=== PATIENT | male | born 1980 | race Hispanic/Latino ===

== ENCOUNTER 2017-07-08 16:41 | Emergency (ER) | payer BC ==
[2017-07-08 16:42] VITALS: BMI 30.8
[2017-07-08 16:52] VITALS: TEMP 98.8
--- NOTE | 2017-07-08 17:47 | ED PDOC ---
Arrival/HPI - General Chief Complaint: Alcohol Ingestion Time Seen by Provider: 07/08/17 17:30 Historian: Patient - History of Present Illness Narrative History of Present Illness (Text): you were treated in the ED today for hx of anxiety, and was drinking alcohol about 4-5 days ago and stopped and states doesn't drink daily, and now feels off , dizziness/lightheaded but otherwise without any nausea/vomiting/headache/ difficulty breathing/chest pain/abdomen pain/numbness/tingling/loss of limb function/pain with urination/thoughts to harm himself or others or hallucinations. 07/08/17 17:43 Time/Duration: Other (4 days ago) Symptom Onset: Gradual Symptom Course: Unchanged Quality: Other (no pain) Activities at Onset: Rest Context: Sitting Past Medical History - Provider Review Nursing Documentation Reviewed: Yes - Travel History Have you recently traveled outside [place] w/in the past 3 mons?: No - Infectious Disease Hx of Infectious Diseases: None - Tetanus Immunization Tetanus Immunization: Unknown - Past Medical History Past Medical History: No Previous - Cardiac Hx Cardiac Disorders: No - Pulmonary Hx Respiratory Disorders: No - Neurological Hx Neurological Disorder: No - HEENT Hx HEENT Disorder: No - Renal Hx Renal Disorder: No - Endocrine/Metabolic Hx Endocrine Disorders: No - Hematological/Oncological Hx Blood Disorders: No - Integumentary Hx Dermatological Disorder: No Other/Comment: cyst removed on back, pt has scab on back 1cm x 1cm - Musculoskeletal/Rheumatological Hx Musculoskeletal Disorders: Yes Hx Falls: Yes - Gastrointestinal Hx Gastrointestinal Disorders: No - Genitourinary/Gynecological Hx Genitourinary Disorders: No - Psychiatric Hx Psychophysiologic Disorder: Yes Hx Anxiety: Yes Hx Bipolar Disorder: No Hx Depression: Yes Hx Emotional Abuse: No Hx Hallucinations: No Hx Panic Disorder: No Hx Post Traumatic Stress Disorder: No Hx Physical Abuse: No Hx Schizophrenia: No Hx Sexual Abuse: No Hx Substance Use: No - Past Surgical History Past Surgical History: No Previous - Anesthesia Hx Anesthesia: No Hx Anesthesia Reactions: No Hx Malignant Hyperthermia: No - Suicidal Assessment Feels Threatened In Home Enviroment: No Family/Social History - Physician Review Nursing Documentation Reviewed: Yes Family/Social History: No Known Family HX Smoking Status: Current Some Days Smoker Hx Alcohol Use: Yes Frequency of alcohol use: Daily Hx Substance Use: No Hx Substance Use Treatment: No Allergies/Home Meds Allergies/Adverse Reactions: Allergies No Known Allergies Allergy (Verified 07/08/17 16:46) Home Medications: Home Meds Medication Instructions Recorded Confirmed QUEtiapine [Seroquel XR] 150 mg PO HS 07/08/17 07/08/17 Review of Systems - Review of Systems Constitutional: Normal Eyes: Normal ENT: Normal Respiratory: Normal Cardiovascular: Normal Gastrointestinal: Normal Genitourinary Male: Normal Musculoskeletal: Normal Skin: Normal Neurological: Normal Endocrine: Normal Hemo/Lymphatic: Normal Psychiatric: Anxiety Physical Exam Vital Signs Reviewed: Yes Vital Signs Temp Pulse Resp BP Pulse Ox 07/08/17 23:01 95 H 18 135/82 96 07/08/17 22:47 98.8 F 214 H 22 110/73 97 07/08/17 16:51 98.8 F 120 H 18 121/76 96 Temperature: Afebrile Blood Pressure: Hypertensive Pulse: Tachycardic Respiratory Rate: Normal Appearance: Positive for: Well-Appearing, Non-Toxic, Comfortable Pain Distress: None Mental Status: Positive for: Alert and Oriented X 3 - Systems Exam Head: Present: Atraumatic, Normocephalic Pupils: Present: PERRL Extroacular Muscles: Present: EOMI Conjunctiva: Present: Normal Ears: Present: Normal Mouth: Present: Moist Mucous Membranes Pharnyx: Present: Normal Nose (External): Present: Atraumatic Nose (Internal): Present: Normal Inspection Neck: Present: Normal Range of Motion Respiratory/Chest: Present: Clear to Auscultation, Good Air Exchange Cardiovascular: Present: Regular Rate and Rhythm Abdomen: No: Tenderness, Distention, Normal Bowel Sounds, Peritoneal Signs, Rebound, Guarding, McBurney's Point Tender, Rovsing's Sign Present, Hernias, Feeding Tubes, Ostomy Tubes, Mass/Organomegaly, Scars, Other Back: Present: Normal Inspection Upper Extremity: Present: Normal Inspection Lower Extremity: Present: Normal Inspection Neurological: Present: GCS=15, CN II-XII Intact, Speech Normal, Motor Func Grossly Intact Skin: Present: Warm, Normal Color Psychiatric: Present: Alert, Oriented x 3, Normal Insight, Normal Concentration , Anxious. No: Normal Affect, Normal Mood, Agitated, Depressed Mood, Suicidal Ideation, Homicidal Ideation, Delusional, Hallucinations, Intoxicated, Lethargic , Other Medical Decision Making ED Course and Treatment: 07/08/17 17:47 you were treated in the ED today for hx of anxiety, and was drinking alcohol about 4-5 days ago and stopped and states doesn't drink daily, and now feels off , dizziness/lightheaded but otherwise without any nausea/vomiting/headache/ difficulty breathing/chest pain/abdomen pain/numbness/tingling/loss of limb function/pain with urination/thoughts to harm himself or others or hallucinations. You were otherwise breathing easily, pink moist lips, talking easily, good strength/sensation, alert/oriented, walking easily, clear lungs, no abdomen tenderness, no fever temp 98.8, fast heart rate 120 and repeat_95, stable breathing rate 18, excellent oxygen level 96% room air, elevated blood pressure 121/76 and repeat 135/82 which we recommend repeat in 2-3 days primary care office to determine further treatment, you have blood tests no infection count 8.6, stable blood level hemoglobin 15/platelets 206, stable chemistry, potassium 3.5 mildly low, bicarbonate mildly low 19, liver AST/ALT elevated 87/ 153, heart blood test negative, alcohol elevated 272, tylenol level negative, aspirin negative, mildly elevated anion gap 23, urine test/urine drug test and repeat chemistry tests refused and cautioned for complications/, radiology chest xray no acute and ct head showed paranasal disease, no acute abnormalities , ECG normal sinus rhythm, intravenous hydration done in the ED, observation done in the ED with improvement/sober status/alert/oriented/walking easily, mental health evaluation who stated you are cleared, can go to rehab/ detoxification center and information provided, you didn't want to repeat your lab tests and cautioned for complications/ but you stated you wanted to go home, counselled to stop drinking alcohol and thus discharged home and you stated you were going to take an Uber safe ride. 1. Recommend follow-up primary care 1-2 days to review symptoms, referral to gastroenterology clinic for mildly elevated liver tests without yellowing to ensure no complications, referral to detoxification clinic to stop drinking alcohol. 4. If any worsening pain, fever, chills, nausea, vomiting, difficulty breathing, numbness, loss of limb function, pain with urination or any medical condition then return to the ED. Report Date: 07/08/17 20:04 EXAM: CT Head Without Intravenous Contrast Dictated and Authenticated by: Yan Sanchez MD IMPRESSION: 1. No definitive acute intracranial abnormality. 2. Paranasal sinus disease is noted above. - Lab Interpretations Lab Results: 07/08/17 17:50 07/08/17 17:50 Lab Results 07/08/17 18:56: Urine Opiates Screen Negative, Urine Methadone Screen Negative, Ur Barbiturates Screen Negative, Ur Phencyclidine Scrn Negative, Ur Amphetamines Screen Negative, U Benzodiazepines Scrn Negative, U Oth Cocaine Metabols Negative, U Cannabinoids Screen Negative 07/08/17 18:56: Urine Color Light yellow, Urine Appearance Clear, Urine pH 6.5, Ur Specific [place] <= 1.005, Urine Protein Negative, Urine Glucose (UA) Negative, Urine Ketones Negative, Urine Blood Negative, Urine Nitrate Negative, Urine Bilirubin Negative, Urine Urobilinogen 0.2, Ur Leukocyte Esterase Negative 07/08/17 17:50: Alcohol, Quantitative 272 H 07/08/17 17:50: Salicylates < 1 L, Acetaminophen < 10.0 L 07/08/17 17:50: Sodium 143, Potassium 3.5 L, Chloride 104, Carbon Dioxide 19 L, Anion Gap 23 H, BUN 5 L, Creatinine 0.8, Est GFR ( Amer) > 60, Est GFR ( Non-Af Amer) > 60, Random Glucose 187 H, Calcium 9.7, Total Bilirubin 0.3, AST 98 H, ALT 153 H, Alkaline Phosphatase 50, Troponin I < 0.01, Total Protein 7.3, Albumin 4.5, Globulin 2.8, Albumin/Globulin Ratio 1.6 07/08/17 17:50: WBC 8.6, RBC 4.75, Hgb 15.5, Hct 43.0, MCV 90.5, MCH 32.6, MCHC 36.0, RDW 13.6, Plt Count 206, MPV 10.9, Gran % 65.4, Lymph % (Auto) 26.0, [place] % (Auto) 7.6 H, Eos % (Auto) 0.8 L, Baso % (Auto) 0.2, Gran # 5.62, Lymph # ( Auto) 2.2, [place] # (Auto) 0.7 H, Eos # (Auto) 0.1, Baso # (Auto) 0.02 I have reviewed the lab results: Yes - RAD Interpretation Radiology Orders: 07/08/17 17:41 CHEST PORTABLE [RAD] Stat 07/08/17 17:42 HEAD W/O CONTRAST [CT] Stat Astronomy Department Chair: Radiologist - EKG Interpretation Interpreted by ED Physician: Yes (NSR) Type: 12 lead EKG Comparison: Similar to previous EKG (08/28/15) - Medication Orders Current Medication Orders: Discontinued Medications Sodium Chloride (Sodium Chloride 0.9%) 1,000 mls @ 999 mls/hr IV .Q1H1M STA Stop: 07/08/17 19:29 Last Admin: 07/08/17 19:24 Dose: 999 mls/hr eMAR Start Stop Document 07/08/17 19:24 CNR (Rec: 07/08/17 19:26 CNR [id number]) Intravenous Solution Start Date 07/08/17 Start Time 19:26 Sodium Chloride (Sodium Chloride 0.9%) 1,000 mls @ 999 mls/hr IV .Q1H1M STA Stop: 07/08/17 21:40 Last Admin: 07/08/17 20:51 Dose: 999 mls/hr eMAR Start Stop Document 07/08/17 20:51 CNR (Rec: 07/08/17 20:51 CNR [id number]) Intravenous Solution Start Date 07/08/17 Start Time 20:51 Disposition/Present on Arrival - Present on Arrival Any Indicators Present on Arrival: No History of DVT/PE: No History of Uncontrolled Diabetes: No Urinary Catheter: No History of Decub. Ulcer: No History Surgical Site Infection Following: None - Disposition Have Diagnosis and Disposition been Completed?: Yes Diagnosis: Alcohol abuse Disposition: HOME/ ROUTINE Disposition Time: 23:10 Patient Plan: Discharge Patient Problems: Current Active Problems Problem Status Onset Alcohol abuse Acute Condition: IMPROVED Discharge Instructions (ExitCare): Alcohol Abuse and Alcoholism (DC), Effects of Alcohol on Your Health Additional Instructions: you were treated in the ED today for hx of anxiety, and was drinking alcohol about 4-5 days ago and stopped and states doesn't drink daily, and now feels off , dizziness/lightheaded but otherwise without any nausea/vomiting/headache/ difficulty breathing/chest pain/abdomen pain/numbness/tingling/loss of limb function/pain with urination/thoughts to harm himself or others or hallucinations. You were otherwise breathing easily, pink moist lips, talking easily, good strength/sensation, alert/oriented, walking easily, clear lungs, no abdomen tenderness, no tremors, no fever temp 98.8, fast heart rate 120 and repeat_95, stable breathing rate 18, excellent oxygen level 96% room air, elevated blood pressure 121/76 and repeat 135/82 which we recommend repeat in 2- 3 days primary care office to determine further treatment, you have blood tests no infection count 8.6, stable blood level hemoglobin 15/platelets 206, stable chemistry, potassium 3.5 mildly low, bicarbonate mildly low 19, liver AST/ALT elevated 87/153, heart blood test negative, alcohol elevated 272, tylenol level negative, aspirin negative, mildly elevated anion gap 23, urine test/urine drug test and repeat chemistry tests refused and cautioned for complications/, radiology chest xray no acute and ct head showed paranasal disease, no acute abnormalities, ECG normal sinus rhythm, intravenous hydration done in the ED, observation done in the ED with improvement/sober status/alert/oriented/walking easily, mental health evaluation who stated you are cleared, can go to rehab/ detoxification center and information provided, you didn't want to repeat your lab tests and cautioned for complications/ but you stated you wanted to go home, you had no tremors, counselled to stop drinking alcohol and thus discharged home and you stated you were going to take an Uber safe ride. 1. Recommend follow-up primary care 1-2 days to review symptoms, referral to gastroenterology clinic for mildly elevated liver tests without yellowing to ensure no complications, referral to detoxification clinic to stop drinking alcohol. 4. If any worsening pain, fever, chills, nausea, vomiting, difficulty breathing, numbness, loss of limb function, pain with urination or any medical condition then return to the ED. no sign of acute withdrawal Forms: [employer] (Khmer)
[2017-07-08 18:07] LABS: BASO # 0.02 K/mm3 (0.0-2.0); BASO % 0.2 % (0.0-3.0); EOS # 0.1 (0.0-0.7); EOS % 0.8 % (1.5-5.0); GRAN # 5.62 (1.4-6.5); GRAN % 65.4 % (50.0-68.0); HEMOGLOBIN 15.5 g/dL (14.0-18.0); LYMPH # 2.2 (1.2-3.4); MEAN CELL VOLUME 90.5 fl (80.0-105.0); MEAN CORPUSCULAR HEMOGLOBIN 32.6 pg (25.0-35.0); MEAN PLATELET VOLUME 10.9 fl (7.0-11.0); MONO # 0.7 (0.1-0.6); MONO % 7.6 % (1.0-6.0); RBC 4.75 10^6/uL (3.5-6.1); RED CELL DISTRIBUTION WIDTH 13.6 % (11.5-14.5); WHITE BLOOD COUNT 8.6 10^3/ul (4.5-11.0)
[2017-07-08 18:12] LABS: ACETAMINOPHEN < 10.0 ug/ml (10.0-20.0); SALICYLATE < 1 mg/dL (2.0-20.0)
[2017-07-08 18:14] LABS: ALB/GLOB RATIO 1.6 (1.1-1.8); ALBUMIN 4.5 g/dL (3.0-4.8); ALT/SGPT 153 U/L (7-56); AST/SGOT 98 U/L (17-59); BLOOD UREA NITROGEN 5 mg/dL (7-21); CALCIUM 9.7 mg/dL (8.4-10.5); GFR AFRICAN-AMERICAN > 60; GFR NON-AFRICAN AMERICAN > 60
[2017-07-08] MEDS ORDERED: Sodium Chloride 0.9% 1,000 ML IV STA ×2 (18:29→20:40)
[2017-07-08 18:31] LABS: TROPONIN I < 0.01 ng/mL
[2017-07-08 19:11] LABS: PH,URINE 6.5 (4.7-8.0); URINE BILIRUBIN NEGATIVE (NEGATIVE); URINE BLOOD NEGATIVE (NEGATIVE); URINE GLUCOSE (UA) NEGATIVE (NEGATIVE); URINE LEUKOCYTE ESTERASE NEGATIVE Leu/uL (NEGATIVE); URINE NITRATE NEGATIVE (NEGATIVE); URINE PROTEIN NEGATIVE mg/dL (<30 mg/dL); URINE UROBILINOGEN 0.2 E.U./dL (<1 E.U./dL)
[2017-07-08 19:13] LABS: URINE APPEARANCE CLEAR (CLEAR); URINE COLOR LIGHT YELLOW (YELLOW)
[2017-07-08 19:47] LABS: BARBITURATES, UR NEGATIVE (NEGATIVE); BENZODIAZEPINES, UR NEGATIVE (NEGATIVE); OPIATES, UR NEGATIVE (NEGATIVE); PHENCYCLIDINE, UR NEGATIVE (NEGATIVE)
--- NOTE | 2017-07-08 20:05 | CT ---
EXAM: CT Head Without Intravenous Contrast EXAM DATE/TIME: 07/08/2017 5:42 PM CLINICAL HISTORY: The patient age is 36 years old and is male; Signs and symptoms; Dizziness; Additional info: 36yom, dizziness/lightheaded Facility exam id and description: Ct heads head w/o contrast TECHNIQUE: Axial computed tomography images of the head/brain without intravenous contrast. All CT scans at this facility use one or more dose reduction techniques, viz.: automated exposure control; ma/kV adjustment per patient size (including targeted exams where dose is matched to indication; i.e. head); or iterative reconstruction technique. Coronal and sagittal reformatted images were created and reviewed. COMPARISON: CT - HEAD W/O CONTRAST 2016-03-30 11:05 FINDINGS: Brain: The white-das differentiation is preserved demonstrating no acute territorial type infarct. No definitive acute intracranial hemorrhage is seen. Midline shift: There is no midline shift. Ventricles: No ventriculomegaly. Bones/joints: The calvarium demonstrates no evidence for a depressed fracture. Soft tissues: No acute abnormality. Sinuses: There is opacification of a right posterior ethmoid air cell. Mastoid air cells: No mastoid effusion. IMPRESSION: 1. No definitive acute intracranial abnormality. 2. Paranasal sinus disease is noted above.
[2017-07-08 23:02] VITALS: BP 135/82; PULSE 95; RESP 18; O2SAT 96
--- NOTE | 2017-07-09 09:37 | RAD ---
HISTORY: 36yoM, alcohol use COMPARISON: 08/28/2015 FINDINGS: LUNGS: The lungs are well inflated and clear. PLEURA: No significant pleural effusion identified, no pneumothorax apparent. CARDIOVASCULAR: Normal. OSSEOUS STRUCTURES: No significant abnormalities. VISUALIZED UPPER ABDOMEN: Normal. OTHER FINDINGS: None. IMPRESSION: No active pulmonary disease.
--- NOTE | 2017-07-09 11:00 | CARD ---
APPROVED REPORT EKG Measurement Heart [id number] <Conclusion> Sinus tachycardia Otherwise normal ECG
== END 2017-07-08 23:19 | disposition home or self-care (01) ==
LOC: ED 16:41
DX: F10.10 Alcohol abuse, uncomplicated (principal); Y90.8 Blood alcohol level of 240 mg/100 ml or more; F41.9 Anxiety disorder, unspecified
CPT/HCPCS: 70450; 71045; 80053; 81003; 84484; 85025; 90791; 93005; 99285; G0480; J7040

== ENCOUNTER 2017-08-25 16:57 | Emergency (ER) | payer BC ==
[2017-08-25 17:27] VITALS: TEMP 98.2; O2SAT 98; BMI 32.5
[2017-08-25] MEDS ORDERED: Multivitamin (MVI) 10 ML, Thiamine 100 MG, Folic Acid 1 MG in Sodium Chloride 0.9% 1,00... IV ONE (17:35)
[2017-08-25 18:05] LABS: BASO # 0.01 K/mm3 (0.0-2.0); BASO % 0.1 % (0.0-3.0); EOS # 0.1 (0.0-0.7); EOS % 0.7 % (1.5-5.0); GRAN # 5.01 (1.4-6.5); GRAN % 66.1 % (50.0-68.0); HEMOGLOBIN 15.2 g/dL (14.0-18.0); LYMPH % 26.9 % (22.0-35.0); MEAN CELL VOLUME 88.8 fl (80.0-105.0); MEAN CORPUSCULAR HEMOGLOBIN 31.6 pg (25.0-35.0); MEAN CORPUSCULAR HGB CONC 35.6 g/dl (31.0-37.0); MEAN PLATELET VOLUME 10.3 fl (7.0-11.0); MONO # 0.5 (0.1-0.6); MONO % 6.2 % (1.0-6.0); RBC 4.81 10^6/uL (3.5-6.1); RED CELL DISTRIBUTION WIDTH 13.8 % (11.5-14.5); WHITE BLOOD COUNT 7.6 10^3/ul (4.5-11.0)
[2017-08-25 18:23] LABS: ALB/GLOB RATIO 1.5 (1.1-1.8); ALBUMIN 4.3 g/dL (3.0-4.8); ALT/SGPT 101 U/L (7-56); AST/SGOT 82 U/L (17-59); BLOOD UREA NITROGEN 12 mg/dL (7-21); CALCIUM 9.6 mg/dL (8.4-10.5); GFR AFRICAN-AMERICAN > 60; GFR NON-AFRICAN AMERICAN > 60; LIPASE 101 U/L (23-300)
[2017-08-25 18:33] LABS: TROPONIN I < 0.01 ng/mL
[2017-08-25 18:57] LABS: URINE BILIRUBIN NEGATIVE (NEGATIVE); URINE BLOOD NEGATIVE (NEGATIVE); URINE GLUCOSE (UA) NEGATIVE (NEGATIVE); URINE LEUKOCYTE ESTERASE NEGATIVE Leu/uL (NEGATIVE); URINE PROTEIN NEGATIVE mg/dL (<30 mg/dL); URINE UROBILINOGEN 0.2 E.U./dL (<1 E.U./dL)
[2017-08-25 19:01] VITALS: BP 151/96; PULSE 105; RESP 18
[2017-08-25 19:06] LABS: URINE APPEARANCE CLEAR (CLEAR); URINE COLOR YELLOW (YELLOW)
[2017-08-25 19:21] LABS: BARBITURATES, UR NEGATIVE (NEGATIVE); BENZODIAZEPINES, UR NEGATIVE (NEGATIVE); OPIATES, UR NEGATIVE (NEGATIVE); PHENCYCLIDINE, UR NEGATIVE (NEGATIVE)
--- NOTE | 2017-08-25 19:51 | ED PDOC ---
Arrival/HPI - General Chief Complaint: Chest Pain Time Seen by Provider: 08/25/17 17:24 Historian: Patient - History of Present Illness Narrative History of Present Illness (Text): 08/25/17 19:52 36-year-old male with a history of alcohol abuse presents today with a two-week history of intermittent chest pain and shortness of breath. Patient states over the past few days chest pain and shortness of breath has worsened. Patient states today he felt as if an elephant was sitting on top of the chest. Patient complaining of pain with deep inspiration. Patient denies any trauma or injury. Patient states he recently finished a 3 day binge of drinking after 2 months of sobriety. Patient denies abdominal pain. Patient complaining of nausea no vomiting. Patient denies radiation of pain to the back. Patient denies drug use. Patient denies dizziness or weakness. No other complaints Symptom Onset: Gradual Symptom Course: Worsening Quality: Pressure, Stabbing Severity Level: 5, 8 Past Medical History - Provider Review Nursing Documentation Reviewed: Yes - Travel History Have you recently traveled outside [place] w/in the past 3 mons?: No - Infectious Disease Hx of Infectious Diseases: None - Tetanus Immunization Tetanus Immunization: Unknown - Past Medical History Past Medical History: No Previous - Cardiac Hx Cardiac Disorders: No - Pulmonary Hx Respiratory Disorders: Yes Hx Sleep Apnea: Yes - Neurological Hx Neurological Disorder: No - HEENT Hx HEENT Disorder: No - Renal Hx Renal Disorder: No - Endocrine/Metabolic Hx Endocrine Disorders: No - Hematological/Oncological Hx Blood Disorders: No - Integumentary Hx Dermatological Disorder: No Other/Comment: cyst removed on back, pt has scab on back 1cm x 1cm - Musculoskeletal/Rheumatological Hx Musculoskeletal Disorders: Yes Hx Falls: Yes - Gastrointestinal Hx Gastrointestinal Disorders: No - Genitourinary/Gynecological Hx Genitourinary Disorders: No - Psychiatric Hx Psychophysiologic Disorder: Yes Hx Anxiety: Yes Hx Bipolar Disorder: No Hx Depression: Yes Hx Emotional Abuse: No Hx Hallucinations: No Hx Panic Disorder: No Hx Post Traumatic Stress Disorder: No Hx Physical Abuse: No Hx Schizophrenia: No Hx Sexual Abuse: No Hx Substance Use: No - Past Surgical History Past Surgical History: No Previous - Anesthesia Hx Anesthesia: No Hx Anesthesia Reactions: No Hx Malignant Hyperthermia: No - Suicidal Assessment Feels Threatened In Home Enviroment: No Family/Social History - Physician Review Nursing Documentation Reviewed: Yes Family/Social History: Unknown Family HX Smoking Status: Heavy Smoker > 10 Cigarettes Daily Hx Alcohol Use: Yes Hx Substance Use: No Hx Substance Use Treatment: No Allergies/Home Meds Allergies/Adverse Reactions: Allergies No Known Allergies Allergy (Verified 08/25/17 17:13) Home Medications: Home Meds Medication Instructions Recorded Confirmed QUEtiapine [Seroquel XR] 150 mg PO HS 07/08/17 07/08/17 Review of Systems - Review of Systems Constitutional: absent: Fatigue, Fevers ENT: absent: Sore Throat, Sinus Congestion Respiratory: SOB. absent: Cough Cardiovascular: Chest Pain, Palpitations Gastrointestinal: Nausea. absent: Abdominal Pain, Vomiting Genitourinary Male: absent: Dysuria Musculoskeletal: absent: Arthralgias, Back Pain, Neck Pain Skin: absent: Rash, Pruritis Neurological: absent: Headache, Dizziness Psychiatric: Anxiety. absent: Depression, Suicidal Ideation Physical Exam Vital Signs Reviewed: Yes Vital Signs Temp Pulse Resp BP Pulse Ox 08/25/17 19:00 105 H 18 151/96 H 98 08/25/17 17:14 98.2 F 116 H 19 144/101 H 98 Temperature: Afebrile Blood Pressure: Hypertensive Pulse: Tachycardic Respiratory Rate: Normal Appearance: Positive for: Well-Appearing, Non-Toxic, Comfortable Pain Distress: None Mental Status: Positive for: Alert and Oriented X 3 - Systems Exam Head: Present: Atraumatic Mouth: Present: Moist Mucous Membranes Neck: Present: Normal Range of Motion Respiratory/Chest: Present: Clear to Auscultation, Good Air Exchange. No: Respiratory Distress, Accessory Muscle Use Cardiovascular: Present: Tachycardic. No: Murmurs Abdomen: No: Tenderness, Distention, Peritoneal Signs, Rebound, Guarding Back: Present: Normal Inspection. No: CVA Tenderness, Midline Tenderness, Paraspinal Tenderness Upper Extremity: Present: Normal ROM Lower Extremity: Present: Normal ROM. No: CALF TENDERNESS Neurological: Present: GCS=15, Speech Normal Skin: Present: Warm, Dry, Normal Color. No: Rashes Psychiatric: Present: Alert, Oriented x 3 Medical Decision Making ED Course and Treatment: 08/25/17 19:54 pt with chest pain and SOB. pt tachycardic and hypertensive. cbc; wnl cmp; wnl trop: wnl d-dimer; wnl alcohol: <10 UDs; wnl ekg; sinus tachycardia at 106 bpm normal axis and QTC 441, no ST elevations cxr; no infiltrate, no effusion pt reassessment; pt feeling better; denies chest pain. asa given PO pt refused admission to the hospital for chest pain and alcohol withdrawal; pt refused additional lab testing. Patient has been advised to not leave the emergency room but has decided to go AGAINST MEDICAL ADVICE. The patient possesses capacity to make decisions and has voiced understanding to all my warnings of potential worsening of the condition for which medical care was sought. I have discussed all known and potential risks and consequences to the patient leaving AGAINST MEDICAL ADVICE. Patient is leaving against medical advise. AMA form signed. witness by NOA KO. pt with ciwa score of 2; will give librium in er and d/c home with rx for librium for 2 days. all aspects of this case were discussed the attending of record. impression; chest pain, alcohol withdrawal RETURN IF YOU WISH TO CONTINUE YOUR CARE Librium; take 1 tablet every 12 hours Follow up with the primary care physician tomorrow. follow up with the cafeteria monitor within the next 2 days. return immediately if symptoms worsen, persist or if new symptoms develop. - Lab Interpretations Lab Results: 08/25/17 17:45 08/25/17 17:45 Lab Results 08/25/17 18:50: Urine Opiates Screen Negative, Urine Methadone Screen Negative, Ur Barbiturates Screen Negative, Ur Phencyclidine Scrn Negative, Ur Amphetamines Screen Negative, U Benzodiazepines Scrn Negative, U Oth Cocaine Metabols Negative, U Cannabinoids Screen Negative 08/25/17 18:50: Urine Color Yellow, Urine Appearance Clear, Urine pH 6.0, Ur Specific [place] <= 1.005, Urine Protein Negative, Urine Glucose (UA) Negative, Urine Ketones Negative, Urine Blood Negative, Urine Nitrate Negative, Urine Bilirubin Negative, Urine Urobilinogen 0.2, Ur Leukocyte Esterase Negative 08/25/17 17:45: Alcohol, Quantitative < 10 08/25/17 17:45: WBC 7.6, RBC 4.81, Hgb 15.2, Hct 42.7, MCV 88.8, MCH 31.6, MCHC 35.6, RDW 13.8, Plt Count 170, MPV 10.3, Gran % 66.1, Lymph % (Auto) 26.9, [place] % (Auto) 6.2 H, Eos % (Auto) 0.7 L, Baso % (Auto) 0.1, Gran # 5.01, Lymph # ( Auto) 2.0, Major # (Auto) 0.5, Eos # (Auto) 0.1, Baso # (Auto) 0.01 08/25/17 17:45: Sodium 134, Potassium 3.8, Chloride 97 L, Carbon Dioxide 25, Anion Gap 15, BUN 12, Creatinine 0.7 L, Est GFR ( Amer) > 60, Est GFR ( Non-Af Amer) > 60, Random Glucose 90, Calcium 9.6, Total Bilirubin 0.5, AST 82 H , ALT 101 H, Alkaline Phosphatase 60, Lactate Dehydrogenase 499, Total Creatine Kinase 98, Troponin I < 0.01, Total Protein 7.3, Albumin 4.3, Globulin 3.0, Albumin/Globulin Ratio 1.5, Lipase 101 08/25/17 17:45: D-Dimer, Quantitative < 200 - RAD Interpretation Radiology Orders: 08/25/17 17:34 CHEST PORTABLE [RAD] Stat - Medication Orders Current Medication Orders: Discontinued Medications Aspirin (Aspirin) 325 mg PO STAT STA Stop: 08/25/17 20:43 Last Admin: 08/25/17 21:02 Dose: 325 mg Chlordiazepoxide (Librium) 25 mg PO STAT STA PRN Reason: Protocol Stop: 08/25/17 20:41 Last Admin: 08/25/17 21:02 Dose: 25 mg Multivitamins/Vitamin C 10 ml/Thiamine HCl 100 mg/ Folic Acid 1 mg/ Sodium Chloride 1,011.2 mls @ 100 mls/hr IV .Q10H7M ONE Stop: 08/26/17 03:41 Last Admin: 08/25/17 18:40 Dose: 100 mls/hr eMAR Start Stop Document 08/25/17 18:40 SRE (Rec: 08/25/17 18:41 SRE [id number]) Intravenous Solution Start Date 08/25/17 Start Time 18:41 Disposition/Present on Arrival - Present on Arrival Any Indicators Present on Arrival: No History of DVT/PE: No History of Uncontrolled Diabetes: No Urinary Catheter: No History of Decub. Ulcer: No History Surgical Site Infection Following: None - Disposition Have Diagnosis and Disposition been Completed?: Yes Diagnosis: Chest pain, Alcohol withdrawal Disposition: AGAINST MEDICAL ADVICE Disposition Time: 20:48 Patient Plan: Other (AMA) Condition: GUARDED Discharge Instructions (ExitCare): Chest Pain, Alcohol Withdrawal, Alcohol Abuse and Alcoholism (DC) Additional Instructions: RETURN IF YOU WISH TO CONTINUE YOUR CARE Librium; take 1 tablet every 12 hours Follow up with the primary care physician tomorrow. follow up with the cafeteria monitor within the next 2 days. return immediately if symptoms worsen, persist or if new symptoms develop. Prescriptions: chlordiazePOXIDE [Chlordiazepoxide HCl] 25 mg PO BID #4 cap Referrals: Gurwinder Abdalla MD [Staff Provider] - Follow up with primary [place] Sanchez MD [Staff Provider] - Follow up with primary Forms: [employer] (Somali), WORK NOTE
--- NOTE | 2017-08-26 09:13 | RAD ---
HISTORY: chest pain COMPARISON: Comparison made with prior chest radiograph dated 07/08/2017 FINDINGS: LUNGS: No active pulmonary disease. PLEURA: No significant pleural effusion identified, no pneumothorax apparent. CARDIOVASCULAR: Normal. OSSEOUS STRUCTURES: No significant abnormalities. VISUALIZED UPPER ABDOMEN: Normal. OTHER FINDINGS: None. IMPRESSION: No active disease.
--- NOTE | 2017-08-26 22:29 | CARD ---
APPROVED REPORT EKG Measurement Heart [id number] [place] 160P57 [id number] <Conclusion> Sinus tachycardia Otherwise normal ECG
== END 2017-08-25 21:10 | disposition left against medical advice (07) ==
LOC: ED 16:57
DX: F10.239 Alcohol dependence with withdrawal, unspecified (principal); R07.9 Chest pain, unspecified; F17.210 Nicotine dependence, cigarettes, uncomplicated
CPT/HCPCS: 71045; 80053; 81003; 82550; 83615; 83690; 84484; 85025; 85378; 93005; 96374; 99284; G0480; J3411; J7040

== ENCOUNTER 2017-09-17 22:12 | Emergency (ER) | payer SELFPAY ==
--- NOTE | 2017-09-17 23:01 | ED PDOC ---
Arrival/HPI - General Historian: Patient - History of Present Illness Time/Duration: Other (see hpi) Context: Home <Moe Juárez - Last Filed: 09/17/17 23:32> <Jin Vyas - Last Filed: 09/18/17 06:50> - General Chief Complaint: Alcohol Ingestion Time Seen by Provider: 09/17/17 23:00 - History of Present Illness Narrative History of Present Illness (Text): 09/17/17 23:01 Patient is not in the room yet. Patient still in WR. 09/17/17 23:15 This 36 yo male with pmh alcohol abuse, presents to this ED alcohol intoxication. Patient stated he is an alcoholic, and he wants to get 'check out ". Patient admits drinking 2 pints of "hard liquor" and a case of beer earlier today. (Moe Juárez) Past Medical History - Provider Review Nursing Documentation Reviewed: Yes - Infectious Disease Hx of Infectious Diseases: None - Cardiac Hx Cardiac Disorders: No - Psychiatric Hx Substance Use: No - Anesthesia Hx Anesthesia: No <Moe Juárez - Last Filed: 09/17/17 23:32> Family/Social History - Physician Review Nursing Documentation Reviewed: Yes Family/Social History: Other (noncontributory) Smoking Status: Heavy Smoker > 10 Cigarettes Daily Hx Alcohol Use: Yes Hx Substance Use: No <Moe Juárez - Last Filed: 09/17/17 23:32> Allergies/Home Meds <Moe Juárez - Last Filed: 09/17/17 23:32> <Jin Vyas - Last Filed: 09/18/17 06:50> Allergies/Adverse Reactions: Allergies No Known Allergies Allergy (Unverified 09/26/16 20:28) Home Medications: Home Meds Medication Instructions Recorded Confirmed QUEtiapine [Seroquel XR] 150 mg PO DAILY 09/17/17 09/17/17 Review of Systems - Review of Systems Constitutional: Normal. absent: Fatigue, Weight Change, Fevers, Night Sweats Eyes: Normal ENT: Normal Respiratory: Normal Cardiovascular: Normal Gastrointestinal: Normal Genitourinary Male: Normal Musculoskeletal: Normal Skin: Normal Neurological: Normal Endocrine: Normal Hemo/Lymphatic: Normal Psychiatric: Other (alcohol intoxication) <Juárez,Nahim P - Last Filed: 09/17/17 23:32> Physical Exam - Physical Exam Physical Exam Limitations: Intoxication Temperature: Afebrile Blood Pressure: Normal Pulse: Tachycardic Respiratory Rate: Normal Appearance: Positive for: Well-Appearing, Non-Toxic, Comfortable Pain Distress: None - Systems Exam Head: Present: Atraumatic, Normocephalic Pupils: Present: PERRL Extroacular Muscles: Present: EOMI Conjunctiva: Present: Normal Mouth: Present: Moist Mucous Membranes Neck: Present: Normal Range of Motion Respiratory/Chest: Present: Clear to Auscultation, Good Air Exchange. No: Respiratory Distress, Accessory Muscle Use Cardiovascular: Present: Regular Rate and Rhythm, Normal S1, S2. No: Murmurs Abdomen: No: Tenderness, Distention, Peritoneal Signs Back: Present: Normal Inspection Upper Extremity: Present: Normal Inspection. No: Cyanosis, Edema Lower Extremity: Present: Normal Inspection. No: Edema Neurological: Present: GCS=15, CN II-XII Intact, Speech Normal Skin: Present: Warm, Dry, Normal Color. No: Rashes Psychiatric: Present: Alert, Intoxicated. No: Suicidal Ideation, Homicidal Ideation, Delusional, Hallucinations <Moe Juárez P - Last Filed: 09/17/17 23:32> Vital Signs Temp Pulse Resp BP Pulse Ox 09/17/17 22:54 98.5 F 102 H 18 123/79 97 Medical Decision Making - Transfer of Care Patient signed out to Dr:: Luis Other: Pending sobriety/reassess/final disposition <Jin Vyas - Last Filed: 09/18/17 06:50> - Medication Orders Current Medication Orders: Discontinued Medications Chlordiazepoxide (Librium) 50 mg PO STAT STA PRN Reason: Protocol Stop: 09/17/17 23:40 Last Admin: 09/18/17 00:08 Dose: 50 mg Multivitamins/Vitamin C 10 ml/Thiamine HCl 100 mg/ Folic Acid 1 mg/ Sodium Chloride 1,011.2 mls @ 1,000 mls/hr IV .Q1H1M ONE Stop: 09/18/17 00:39 Last Admin: 09/18/17 00:08 Dose: 1,000 mls/hr eMAR Start Stop Document 09/18/17 00:08 CNR (Rec: 09/18/17 00:08 CNR [id number]) Intravenous Solution Start Date 09/18/17 Start Time 00:08 - PA / PATIENT SERVICES REP / Resident Statement MONA has reviewed & agrees with the documentation as recorded. MONA has examined the patient and agrees with the treatment plan. <Jin Vyas - Last Filed: 09/18/17 06:50> Disposition/Present on Arrival - Present on Arrival History of DVT/PE: No History of Uncontrolled Diabetes: No Urinary Catheter: No History of Decub. Ulcer: No History Surgical Site Infection Following: None <Moe Juárez - Last Filed: 09/17/17 23:32> - Present on Arrival Any Indicators Present on Arrival: No - Disposition Have Diagnosis and Disposition been Completed?: No Disposition Time: 07:00 <Jin Vyas - Last Filed: 09/18/17 06:50> - Disposition Diagnosis: Alcohol intoxication Condition: STABLE Referrals: Gurwinder Abdalla MD [Primary Care Provider] - Follow up with primary Forms: [employer] (Ukrainian)
[2017-09-17] MEDS ORDERED: Multivitamin (MVI) 10 ML, Thiamine 100 MG, Folic Acid 1 MG in Sodium Chloride 0.9% 1,00... IV ONE (23:39)
[2017-09-18 07:56] LABS: BASO # 0.01 K/mm3 (0.0-2.0); BASO % 0.2 % (0.0-3.0); EOS # 0.1 (0.0-0.7); EOS % 1.5 % (1.5-5.0); GRAN # 3.59 (1.4-6.5); GRAN % 54.2 % (50.0-68.0); HEMOGLOBIN 15.4 g/dL (14.0-18.0); LYMPH # 2.3 (1.2-3.4); LYMPH % 34.7 % (22.0-35.0); MEAN CELL VOLUME 87.9 fl (80.0-105.0); MEAN CORPUSCULAR HEMOGLOBIN 31.7 pg (25.0-35.0); MEAN CORPUSCULAR HGB CONC 36.1 g/dl (31.0-37.0); MONO # 0.6 (0.1-0.6); MONO % 9.4 % (1.0-6.0); RBC 4.86 10^6/uL (3.5-6.1); RED CELL DISTRIBUTION WIDTH 13.6 % (11.5-14.5); WHITE BLOOD COUNT 6.6 10^3/ul (4.5-11.0)
[2017-09-18 08:02] LABS: INR 0.93 (0.93-1.08); PROTHROMBIN TIME 10.7 SECONDS (9.4-12.5)
[2017-09-18 08:03] LABS: URINE APPEARANCE CLEAR (CLEAR); URINE BILIRUBIN NEGATIVE (NEGATIVE); URINE BLOOD NEGATIVE (NEGATIVE); URINE COLOR LIGHT YELLOW (YELLOW); URINE GLUCOSE (UA) NEGATIVE (NEGATIVE); URINE LEUKOCYTE ESTERASE NEGATIVE Leu/uL (NEGATIVE); URINE PROTEIN NEGATIVE mg/dL (<30 mg/dL); URINE UROBILINOGEN 0.2 E.U./dL (<1 E.U./dL)
[2017-09-18 08:13] LABS: ALB/GLOB RATIO 1.6 (1.1-1.8); ALBUMIN 4.6 g/dL (3.0-4.8); ALT/SGPT 98 U/L (7-56); AST/SGOT 72 U/L (17-59); BILIRUBIN,DIRECT 0.3 mg/dL (0.0-0.4); BLOOD UREA NITROGEN 5 mg/dL (7-21); CALCIUM 9.1 mg/dL (8.4-10.5); GFR AFRICAN-AMERICAN > 60; GFR NON-AFRICAN AMERICAN > 60
[2017-09-18 08:20] LABS: BARBITURATES, UR NEGATIVE (NEGATIVE); BENZODIAZEPINES, UR NEGATIVE (NEGATIVE); OPIATES, UR NEGATIVE (NEGATIVE); PHENCYCLIDINE, UR NEGATIVE (NEGATIVE)
--- NOTE | 2017-09-18 08:29 | ED PDOC ---
Physical Exam Vital Signs Temp Pulse Resp BP Pulse Ox 09/18/17 07:32 98.2 F 100 H 18 137/88 96 09/18/17 00:05 97.2 F L 98 H 22 114/62 97 09/17/17 22:54 98.5 F 102 H 18 123/79 97 Medical Decision Making ED Course and Treatment: 09/18/17 08:28 Patient signed out to me by Dr. Vyas. EKG: Ordered, reviewed, and independently interpreted the EKG. Rate : 85 BPM Rhythm : NSR Interpretation : No ST-segment elevations or depressions, no T-wave inversions, normal intervals. - Lab Interpretations Lab Results: 09/18/17 07:50 09/18/17 07:50 Lab Results 09/18/17 07:50: Alcohol, Quantitative 102 H 09/18/17 07:50: Urine Opiates Screen Negative, Urine Methadone Screen Negative, Ur Barbiturates Screen Negative, Ur Phencyclidine Scrn Negative, Ur Amphetamines Screen Negative, U Benzodiazepines Scrn Negative, U Oth Cocaine Metabols Negative, U Cannabinoids Screen Negative 09/18/17 07:50: Sodium 145, Potassium 4.0, Chloride 104, Carbon Dioxide 25, Anion Gap 20, BUN 5 L, Creatinine 0.7 L, Est GFR ( Amer) > 60, Est GFR ( Non-Af Amer) > 60, Random Glucose 86, Calcium 9.1, Total Bilirubin 0.8, Direct Bilirubin 0.3, AST 72 H, ALT 98 H, Alkaline Phosphatase 61, Total Protein 7.5, Albumin 4.6, Globulin 2.9, Albumin/Globulin Ratio 1.6 09/18/17 07:50: Urine Color Light yellow, Urine Appearance Clear, Urine pH 7.0, Ur Specific [place] <= 1.005, Urine Protein Negative, Urine Glucose (UA) Negative, Urine Ketones Negative, Urine Blood Negative, Urine Nitrate Negative, Urine Bilirubin Negative, Urine Urobilinogen 0.2, Ur Leukocyte Esterase Negative 09/18/17 07:50: PT 10.7, INR 0.93 09/18/17 07:50: WBC 6.6, RBC 4.86, Hgb 15.4, Hct 42.7, MCV 87.9, MCH 31.7, MCHC 36.1, RDW 13.6, Plt Count 227, MPV 10.0, Gran % 54.2, Lymph % (Auto) 34.7, [place] % (Auto) 9.4 H, Eos % (Auto) 1.5, Baso % (Auto) 0.2, Gran # 3.59, Lymph # (Auto ) 2.3, [place] # (Auto) 0.6, Eos # (Auto) 0.1, Baso # (Auto) 0.01 - RAD Interpretation Radiology Orders: 09/18/17 07:53 CHEST PORTABLE [RAD] Stat - Medication Orders Current Medication Orders: Chlordiazepoxide (Librium) 50 mg PO STAT STA PRN Reason: Protocol Stop: 09/18/17 08:41 Discontinued Medications Chlordiazepoxide (Librium) 50 mg PO STAT STA PRN Reason: Protocol Stop: 09/17/17 23:40 Last Admin: 09/18/17 00:08 Dose: 50 mg Multivitamins/Vitamin C 10 ml/Thiamine HCl 100 mg/ Folic Acid 1 mg/ Sodium Chloride 1,011.2 mls @ 1,000 mls/hr IV .Q1H1M ONE Stop: 09/18/17 00:39 Last Admin: 09/18/17 00:08 Dose: 1,000 mls/hr eMAR Start Stop Document 09/18/17 00:08 CNR (Rec: 09/18/17 00:08 CNR [id number]) Intravenous Solution Start Date 09/18/17 Start Time 00:08 - Scribe Statement The provider has reviewed the documentation as recorded by the Scribe Disposition/Present on Arrival - Present on Arrival Any Indicators Present on Arrival: No History of DVT/PE: No History of Uncontrolled Diabetes: No Urinary Catheter: No History of Decub. Ulcer: No History Surgical Site Infection Following: None - Disposition Have Diagnosis and Disposition been Completed?: Yes Diagnosis: Alcohol intoxication, Alcohol abuse Disposition: HOME/ ROUTINE Disposition Time: 08:41 Patient Plan: Discharge Patient Problems: Current Active Problems Problem Status Onset Alcohol intoxication Acute Condition: GOOD Additional Instructions: Sage - Please return to us if any problems. Fernando- Dr. Abel Smith Referrals: Gurwinder Abdalla MD [Primary Care Provider] - Follow up with primary Forms: [id number] (Icelandic)
[2017-09-18 08:51] VITALS: BP 134/82; PULSE 99; RESP 17; TEMP 98.1; O2SAT 99
--- NOTE | 2017-09-18 09:09 | RAD ---
HISTORY: PES COMPARISON: No prior. FINDINGS: LUNGS: No active pulmonary disease. PLEURA: No significant pleural effusion identified, no pneumothorax apparent. CARDIOVASCULAR: Normal. OSSEOUS STRUCTURES: No significant abnormalities. VISUALIZED UPPER ABDOMEN: Normal. OTHER FINDINGS: None. IMPRESSION: No active disease.
--- NOTE | 2017-09-18 14:13 | CARD ---
APPROVED REPORT EKG Measurement Heart [id number] [place] 150P55 [id number] <Conclusion> Normal sinus rhythm Normal ECG
== END 2017-09-18 08:55 | disposition home or self-care (01) ==
LOC: ED 22:12 → MERGE 22:12 → ED 09-18 08:55
DX: F10.129 Alcohol abuse with intoxication, unspecified (principal); F17.210 Nicotine dependence, cigarettes, uncomplicated
CPT/HCPCS: 71045; 80053; 81003; 82248; 85025; 85610; 90791; 93005; 99284; G0480; J3411; J7040

== ENCOUNTER 2017-12-24 23:09 | Emergency (ER) | payer BC ==
[2017-12-24 23:10] VITALS: BMI 32.5
== END 2017-12-25 00:30 | disposition left against medical advice (07) ==
LOC: ED 23:09
DX: Z02.89 Encounter for other administrative examinations (principal); F10.129 Alcohol abuse with intoxication, unspecified

== ENCOUNTER 2017-12-29 04:03 | Inpatient (IN) | payer BC ==
[2017-12-29 04:03] VITALS: BMI 32.5
--- NOTE | 2017-12-29 04:29 | ED PDOC ---
Arrival/HPI - General Chief Complaint: Alcohol Ingestion Time Seen by Provider: 12/29/17 04:25 Historian: Patient - History of Present Illness Narrative History of Present Illness (Text): 12/29/17 04:26 37 year old male presents to the Emergency department complaining of alcohol intoxication. Patient notes he drank alcohol for the past few days. Patient notes his last drink was about 5-6 hours ago. Dull HPI/ROS limited due to intoxication. Time/Duration: Prior to Arrival Symptom Onset: Gradual Symptom Course: Unchanged Activities at Onset: Light Context: Home Past Medical History - Provider Review Nursing Documentation Reviewed: Yes - Infectious Disease Hx of Infectious Diseases: None - Tetanus Immunization Tetanus Immunization: Unknown - Past Medical History Past Medical History: No Previous - Cardiac Hx Cardiac Disorders: No Hx Hypertension: No - Pulmonary Hx Tuberculosis: No - Neurological HX Cerebrovascular Accident: No Hx Seizures: Yes - HEENT Hx HEENT Disorder: No - Renal Hx Renal Disorder: No - Endocrine/Metabolic Hx Endocrine Disorders: No - Hematological/Oncological Hx Cancer: No - Integumentary Hx Dermatological Disorder: No Other/Comment: cyst removed on back, pt has scab on back 1cm x 1cm - Musculoskeletal/Rheumatological Hx Musculoskeletal Disorders: Yes Hx Falls: Yes - Gastrointestinal Hx Gastrointestinal Disorders: No - Genitourinary/Gynecological Hx Sexually Transmitted Diseases: No - Psychiatric Hx Psychophysiologic Disorder: Yes Hx Anxiety: Yes Hx Bipolar Disorder: No Hx Depression: Yes Hx Emotional Abuse: No Hx Hallucinations: No Hx Panic Disorder: No Hx Post Traumatic Stress Disorder: No Hx Physical Abuse: No Hx Schizophrenia: No Hx Sexual Abuse: No Hx Substance Use: No - Past Surgical History Past Surgical History: No Previous - Anesthesia Hx Anesthesia: No - Suicidal Assessment Feels Threatened In Home Enviroment: No Family/Social History - Physician Review Nursing Documentation Reviewed: Yes Family/Social History: Unknown Family HX Smoking Status: Heavy Smoker > 10 Cigarettes Daily Hx Alcohol Use: Yes Frequency of alcohol use: Daily Hx Substance Use: No Hx Substance Use Treatment: No Allergies/Home Meds Allergies/Adverse Reactions: Allergies No Known Allergies Allergy (Verified 12/29/17 04:11) Home Medications: Home Meds Medication Instructions Recorded Confirmed QUEtiapine [Seroquel XR] 150 mg PO HS 07/08/17 07/08/17 QUEtiapine [Seroquel XR] 150 mg PO DAILY 09/17/17 09/17/17 Review of Systems - Review of Systems Systems not reviewed;Unavailable: Intoxicated Physical Exam - Physical Exam Narrative Physical Exam (Text): 12/29/17 04:28 Gen: VS reviewed, alert, well developed, well nourished, nontoxic, mild distress. ENT: normal pharynx. Eye: EOMI, PERRL. Neck: no JVD, supple, no adenopathy. CV: regular rate, regular rhythm, no rubs, no murmur, no gallops, S1, S2, pulses equal and strong. Pulm: active hiccups. no distress, clear to auscultation, no wheeze, no rhonchi , breath sounds equal, no rales. Abd: soft, nontender, no guarding, no rebound, no rigidity, normal bowel sounds. Ext: no edema. Skin: diaphoretic. good color, no rash, no cyanosis. Psych: intoxicated. responds appropriately to questions, normal affect. Neuro: oriented x 3, CN2-12 intact grossly, motor intact, sensation intact. Vital Signs Reviewed: Yes Vital Signs Temp Pulse Resp BP Pulse Ox 12/29/17 06:43 105 H 20 121/75 94 L 12/29/17 04:17 98.1 F 125 H 20 148/93 H 98 Temperature: Afebrile Blood Pressure: Hypertensive Pulse: Tachycardic Respiratory Rate: Normal Appearance: Positive for: Well-Appearing, Non-Toxic, Comfortable Pain Distress: None Mental Status: Positive for: Alert and Oriented X 3 Finger Stick Blood Glucose: 93 Medical Decision Making ED Course and Treatment: 12/29/17 04:30 Impression: 37 year old male presents to the Emergency department complaining of intoxication. Plan: -- Reassess and disposition Progress Notes: 12/29/17 04:54 re-eval: patient appears much more comfortable, no longer diaphoretic, no tremor noted, still clinically intoxicated with slurred speech 12/29/17 07:[address] bland, patient to be admitted for alcohol withdrawal. Patient has been binge drinking for approx 1 week, came to the ED as he was not feeling well. There is no physical evidence of trauma. As of 650a, CIWA score assessed at approx 2. Patient remained stable throughout ED course and admitted to [facility] for tx alcohol withdrawal. - Lab Interpretations Lab Results: 12/29/17 04:33 12/29/17 04:33 Lab Results 12/29/17 04:33: Alcohol, Quantitative 283 H 12/29/17 04:33: Sodium 141, Potassium 4.0, Chloride 95 L, Carbon Dioxide 27, Anion Gap 23 H, BUN 12, Creatinine 0.7 L, Est GFR ( Amer) > 60, Est GFR ( Non-Af Amer) > 60, Random Glucose 101, Calcium 8.7, Magnesium 1.9, Total Bilirubin 0.6, AST 62 H, ALT 61 H, Alkaline Phosphatase 82, Total Protein 8.1, Albumin 4.8, Globulin 3.2, Albumin/Globulin Ratio 1.5 12/29/17 04:33: WBC 12.4 H D, RBC 5.18, Hgb 16.3, Hct 43.9, MCV 84.7 D, MCH 31.5, MCHC 37.1 H, RDW 13.3, Plt Count 189, MPV 10.2, Gran % 63.6, Lymph % (Auto ) 29.4, [place] % (Auto) 6.7 H, Eos % (Auto) 0.1 L, Baso % (Auto) 0.2, Gran # 7.90 H, Lymph # (Auto) 3.6 H, [place] # (Auto) 0.8 H, Eos # (Auto) 0.0, Baso # (Auto) 0.02 12/29/17 04:16: POC Glucose (mg/dL) 94 - EKG Interpretation EKG Interpretation (Text): 12/29/17 06:39 0425: sinus tachycardia at 115 bpm, nml qrs, nml axis, poor r wave progression, no acute sttw abn Interpreted by ED Physician: Yes - Medication Orders Current Medication Orders: Multivitamins/Vitamin C 10 ml/Thiamine HCl 100 mg/ Folic Acid 1 mg/ Sodium Chloride 1,011.2 mls @ 150 mls/hr IV .Q6H45M ONE Stop: 12/29/17 11:22 Last Admin: 12/29/17 04:58 Dose: 150 mls/hr eMAR Start Stop Document 12/29/17 04:58 CNR (Rec: 12/29/17 05:00 CNR [id number]) Intravenous Solution Start Date 12/29/17 Start Time 05:00 Discontinued Medications Lorazepam (Ativan) 1 mg IVP ONCE ONE PRN Reason: Protocol Stop: 12/29/17 04:36 Last Admin: 12/29/17 04:43 Dose: 1 mg IVP Administration Document 12/29/17 04:43 CNR (Rec: 12/29/17 04:43 CNR [id number]) Charges for Administration # of IVP Administrations 1 Ondansetron HCl (Zofran Inj) 4 mg IVP STAT STA Stop: 12/29/17 04:36 Last Admin: 12/29/17 04:43 Dose: 4 mg IVP Administration Document 12/29/17 04:43 CNR (Rec: 12/29/17 04:43 CNR [id number]) Charges for Administration # of IVP Administrations 1 - Scribe Statement The provider has reviewed the documentation as recorded by the Scribe Aliya Goff All medical record entries made by the Scribe were at my direction and personally dictated by me. I have reviewed the chart and agree that the record accurately reflects my personal performance of the history, physical exam, medical decision making, and the department course for this patient. I have also personally directed, reviewed, and agree with the discharge instructions and disposition. Disposition/Present on Arrival - Present on Arrival Any Indicators Present on Arrival: No History of DVT/PE: No History of Uncontrolled Diabetes: No Urinary Catheter: No History of Decub. Ulcer: No History Surgical Site Infection Following: None - Disposition Have Diagnosis and Disposition been Completed?: Yes Diagnosis: Alcohol withdrawal syndrome Disposition: HOSPITALIZED Disposition Time: 07:14 Condition: STABLE
[2017-12-29] MEDS ORDERED: Multivitamin (MVI) 10 ML, Thiamine 100 MG, Folic Acid 1 MG in Sodium Chloride 0.9% 1,00... IV ONE (04:38)
[2017-12-29 05:16] LABS: BASO # 0.02 K/mm3 (0.0-2.0); BASO % 0.2 % (0.0-3.0); EOS % 0.1 % (1.5-5.0); GRAN # 7.9 (1.4-6.5); GRAN % 63.6 % (50.0-68.0); HEMOGLOBIN 16.3 g/dL (14.0-18.0); LYMPH # 3.6 (1.2-3.4); LYMPH % 29.4 % (22.0-35.0); MEAN CELL VOLUME 84.7 fl (80.0-105.0); MEAN CORPUSCULAR HEMOGLOBIN 31.5 pg (25.0-35.0); MEAN CORPUSCULAR HGB CONC 37.1 g/dl (31.0-37.0); MEAN PLATELET VOLUME 10.2 fl (7.0-11.0); MONO # 0.8 (0.1-0.6); MONO % 6.7 % (1.0-6.0); RBC 5.18 10^6/uL (3.5-6.1); RED CELL DISTRIBUTION WIDTH 13.3 % (11.5-14.5); WHITE BLOOD COUNT 12.4 10^3/ul (4.5-11.0)
[2017-12-29 05:28] LABS: ALB/GLOB RATIO 1.5 (1.1-1.8); ALBUMIN 4.8 g/dL (3.0-4.8); ALT/SGPT 61 U/L (7-56); AST/SGOT 62 U/L (17-59); BLOOD UREA NITROGEN 12 mg/dL (7-21); CALCIUM 8.7 mg/dL (8.4-10.5); GFR NON-AFRICAN AMERICAN > 60
[2017-12-29 07:26] LABS: VENOUS BLOOD GAS BASE EXCESS 4.4 mmol/L (0.0-2.0); VENOUS BLOOD GAS PO2 145 mm/Hg (30-55); VENOUS BLOOD PH 7.44 (7.32-7.43)
[2017-12-29 08:26] LABS: HDL CHOLESTEROL 58 mg/dL (29-60)
[2017-12-29 08:36] LABS: LDL CHOLESTEROL 70 mg/dL (0-129)
--- NOTE | 2017-12-29 08:36 | RAD ---
Date of service: 12/29/2017 PROCEDURE: CHEST RADIOGRAPH, 1 VIEW HISTORY: withdrawal COMPARISON: 09/18/2017. FINDINGS: LUNGS: The lungs are well inflated and clear. PLEURA: No pneumothorax or pleural fluid seen. CARDIOVASCULAR: Normal. OSSEOUS STRUCTURES: No significant abnormalities. VISUALIZED UPPER ABDOMEN: Normal. OTHER FINDINGS: None. IMPRESSION: No active pulmonary disease.
[2017-12-29 08:44] LABS: FREE T4 0.92 ng/dL (0.78-2.19)
--- NOTE | 2017-12-29 10:04 | CP.PCM.HP ---
History of Present Illness - History of Present Illness History of Present Illness: 37 year old male with history of alcohol abuse presented to the Emergency Room after drinking heavily for a few days. Patient denies chest pain or shortness of breath. Patient admits to coming to the ER multiple times for this problem. Present on Admission - Present on Admission Any Indicators Present on Admission: No History of DVT/PE: No History of Uncontrolled Diabetes: No Urinary Catheter: No Decubitus Ulcer Present: No Review of Systems - Constitutional Constitutional: absent: Chills, Fever - Cardiovascular Cardiovascular: absent: Chest Pain, Diaphoresis, Dyspnea - Respiratory Respiratory: absent: Cough, Dyspnea, Wheezing - Gastrointestinal Gastrointestinal: absent: Abdominal Pain Past Patient History - Infectious Disease Hx of Infectious Diseases: None - Tetanus Immunizations Tetanus Immunization: Unknown - Past Social History Smoking Status: Heavy Smoker > 10 Cigarettes Daily - CARDIAC Hx Cardiac Disorders: No Hx Hypertension: No - PULMONARY Hx Tuberculosis: No - NEUROLOGICAL HX Cerebrovascular Accident: No Hx Seizures: Yes - HEENT Hx HEENT Problems: No - RENAL Hx Chronic Kidney Disease: No - ENDOCRINE/METABOLIC Hx Endocrine Disorders: No - HEMATOLOGICAL/ONCOLOGICAL Hx Cancer: No - INTEGUMENTARY Hx Dermatological Problems: No Other/Comment: cyst removed on back, pt has scab on back 1cm x 1cm - MUSCULOSKELETAL/RHEUMATOLOGICAL Hx Musculoskeletal Disorders: Yes Hx Falls: Yes - GASTROINTESTINAL Hx Gastrointestinal Disorders: No - GENITOURINARY/GYNECOLOGICAL Hx Sexually Transmitted Disorders: No - PSYCHIATRIC Hx Psychophysiologic Disorder: Yes Hx Anxiety: Yes Hx Bipolar Disorder: No Hx Depression: Yes Hx Emotional Abuse: No Hx Hallucinations: No Hx Panic Symptoms: No Hx Post Traumatic Stress Disorder: No Hx Physical Abuse: No Hx Schizophrenia: No Hx Sexual Abuse: No Hx Substance Use: No - SURGICAL HISTORY Hx Surgeries: No - ANESTHESIA Hx Anesthesia: No Meds Allergies/Adverse Reactions: Allergies Allergy/AdvReac Type Severity Reaction Status Date / Time No Known Allergies Allergy Verified 12/29/17 04:11 Physical Exam - Constitutional Appears: No Acute Distress - Head Exam Head Exam: ATRAUMATIC, NORMOCEPHALIC - Respiratory Exam Respiratory Exam: Clear to Auscultation Bilateral, NORMAL BREATHING PATTERN - Cardiovascular Exam Cardiovascular Exam: REGULAR RHYTHM, +S1, +S2 - GI/Abdominal Exam GI & Abdominal Exam: Normal Bowel Sounds, Soft. absent: Tenderness - Neurological Exam Neurological exam: Alert, CN II-XII Intact, Oriented x3 Results - Vital Signs Recent Vital Signs: Last Vital Signs Temp 98.1 F 12/29/17 04:17 Pulse 108 H 12/29/17 09:21 Resp 20 12/29/17 09:21 BP 101/62 12/29/17 09:21 Pulse Ox 96 12/29/17 09:21 - Labs Result Diagrams: 12/29/17 04:33 12/29/17 04:33 Labs: Laboratory Results - last 24 hr 12/29/17 12/29/17 12/29/17 07:00 07:00 07:10 pO2 145 H VBG pH 7.44 H VBG pCO2 43.0 VBG HCO3 29.2 H VBG Total CO2 30.5 H VBG O2 Sat (Calc) 99.6 H VBG Base Excess 4.4 H VBG Potassium 3.9 Sodium 138.0 Chloride 100.0 Glucose 93 Lactate 3.4 H FiO2 21.0 Ammonia Triglycerides 217 H Cholesterol 158 LDL Cholesterol Direct 70 HDL Cholesterol 58 Free T4 0.92 TSH 3rd Generation 1.03 Venous Blood Potassium 3.9 12/29/17 09:30 pO2 VBG pH VBG pCO2 VBG HCO3 VBG Total CO2 VBG O2 Sat (Calc) VBG Base Excess VBG Potassium Sodium Chloride Glucose Lactate FiO2 [place] 13 Triglycerides Cholesterol LDL Cholesterol Direct HDL Cholesterol Free T4 TSH 3rd Generation Venous Blood Potassium Assessment & Plan - Assessment and Plan (Free Text) Assessment: Alcohol withdrawal - continue IV fluids with thiamine and folic acid. Psychiatry consult for history of alcohol abuse Leukocytosis - repeat WBC count
--- NOTE | 2017-12-29 11:29 | CARD ---
APPROVED REPORT Date of service: 12/29/2017 EKG Measurement Heart [id number] [place] 162P39 [id number] <Conclusion> Sinus tachycardia Possible Anterior infarct, age undetermined Abnormal ECG
[2017-12-29] MEDS ORDERED: Lactated Ringer's 1,000 ML IV SCH (11:30)
[2017-12-29] MEDS: Multivitamin With Minerals Tab PO SCH ×2 (11:52→11:54)
[2017-12-29 12:07] LABS: VENOUS BLOOD GAS BASE EXCESS 4.2 mmol/L (0.0-2.0); VENOUS BLOOD GAS PO2 190 mm/Hg (30-55); VENOUS BLOOD PH 7.46 (7.32-7.43)
[2017-12-29 12:10] LABS: URINE BILIRUBIN NEGATIVE (NEGATIVE); URINE BLOOD TRACE-INTACT (NEGATIVE); URINE GLUCOSE (UA) NEGATIVE (NEGATIVE); URINE LEUKOCYTE ESTERASE NEGATIVE Leu/uL (NEGATIVE); URINE PROTEIN 30 mg/dL (<30 mg/dL); URINE UROBILINOGEN 0.2 E.U./dL (<1 E.U./dL)
[2017-12-29 12:17] LABS: URINE APPEARANCE CLEAR (CLEAR); URINE COLOR YELLOW (YELLOW); URINE WBC 0 - 2 /hpf (0-6)
[2017-12-29 12:18] LABS: URINE AMORPHOUS SEDIMENT FEW; URINE BACTERIA MOD (NEG); URINE FINE GRANULAR CAST 0 - 2 /hpf (0-2); URINE HYALINE CAST 0 - 2 /hpf
[2017-12-29 12:25] LABS: BARBITURATES, UR NEGATIVE (NEGATIVE); BENZODIAZEPINES, UR NEGATIVE (NEGATIVE); OPIATES, UR NEGATIVE (NEGATIVE); PHENCYCLIDINE, UR NEGATIVE (NEGATIVE)
[2017-12-29] MEDS ORDERED: Multivitamin (MVI) 10 ML in Sodium Chloride 0.9% 1,000 ML IV ONE (15:52)
--- NOTE | 2017-12-30 04:54 | CON ---
Copied To: Lay Mehta MD Attending MD: Lay Mehta MD DATE: 12/29/2017 HISTORY OF PRESENT ILLNESS: Shortly, the patient is a 37-year-old male with reported history of alcohol use disorder, history of major depressive disorder, currently not on any psychotropic medications. The patient is awaiting for initial intake at Dr. Ruslan Quick's office. The patient was admitted to the medical floor for evaluation of possible alcohol withdrawal symptoms. The patient called 911 because the patient was afraid that he is going to due to alcohol poisoning as per the patient's report. The patient was seen as per medical request for evaluation of depressive symptoms and also alcohol use disorder and medication management. The patient was seen and examined today with medical student. The patient presented to be alert. Reported that he feels nauseated. The patient reported that his last drink was about 12 hours ago and he started to have withdrawal symptoms. The patient reported that he has upper extremity tremor as well. PHYSICAL EXAMINATION: VITAL SIGNS: The patient's vital signs indicated that he started to withdrawing. The patient is tachycardic from 105 to 112, blood pressure is also elevated 145/83, respiration 18, oxygen saturation is 98, and temperature 98.2. The patient reported that he feels depressed, that is why he was looking for Psychiatric help from Dr. Ruslan Quick and he is waiting for intake to take place anytime in the future. The patient reported that at times he feels hopeless and depressed, but the patient adamantly denied any thoughts of harming himself. The patient states that he wants to get better and he was afraid that he is going to . In regards of alcohol addiction, the patient said that he is binge drinker. Usually, he drinks for five days and six months he will stay sober. The patient wants to break that pattern. The patient was opened to discuss medication and help with his major depressive disorder. The patient was very polite and appreciated for this telegraphic typewriter mechanic's assessment. In regards of the medication, what the patient is currently on, this telegraphic typewriter mechanic recommended Librium 50mg every 6 hours. The patient was started on Catapres 0.1 mg every 4 hours as needed. The patient is on Valium 5 mg every 8 hours as needed, folic acid, multivitamins, and thiamine, Ativan 1 mg IV push every 4 hours as needed. The patient is on Zofran, Protonix, and this telegraphic typewriter mechanic will start Ambien 5 mg as needed. Trazodone was discontinued. Risks, benefits and alternatives of all medications were discussed. LABORATORY DATA: Reviewed MENTAL STATUS EXAMINATION: The patient presented with fair eye contact, acceptable personal hygiene, had typical alcoholic habitus, some redness on his face and swelling. Speech was normal rate, tone, quality and quantity. Mood described, "at times I feel depressed and hopeless." Thought process seems to be coherent and goal directed. Thought content, the patient denied thoughts of harming himself or others. Denied visual, auditory or tactile hallucinations. No psychotic symptoms were identified or reported. Insight and judgment seemed to be limited, but the patient has potential to improve his insight into EtOH addiction and major depressive disorder. Impulses are well controlled. IMPRESSION AND PLAN: Rule out major depressive disorder, rule out alcohol use disorder, rule out mood disorder due to chronic alcohol consumption. Continue current management, continue current medications. We will try to continue haloperidol because the patient does not have any psychotic symptoms. Librium was increased because the patient started to have withdrawal symptoms and the patient has history of alcohol withdrawal symptoms in the past. This telegraphic typewriter mechanic would recommend to continue multivitamins, thiamine, and folic acid. Discontinue trazodone because the patient did not take that medication before. Also, this telegraphic typewriter mechanic cannot exclude that mood will be improving as soon as the patient will start feeling better from withdrawal symptoms. We will follow up and advise accordingly. The patient denies any craving for alcohol. Options of naltrexone and Revia was discussed with the patient. The patient will be benefited from inpatient rehab or AA meetings. This telegraphic typewriter mechanic will follow up and advise accordingly. Thank you very much for letting me participate in care of your patient. Lay Mehta MD JUNE
[2017-12-30] MEDS: Pantoprazole 40 mg EC Tab PO SCH ×2 (05:13→17:08)
[2017-12-30 06:25] LABS: HEMOGLOBIN 13.5 g/dL (14.0-18.0); MEAN CELL VOLUME 86.1 fl (80.0-105.0); MEAN CORPUSCULAR HEMOGLOBIN 30.3 pg (25.0-35.0); MEAN CORPUSCULAR HGB CONC 35.2 g/dl (31.0-37.0); MEAN PLATELET VOLUME 10.2 fl (7.0-11.0); RBC 4.46 10^6/uL (3.5-6.1); RED CELL DISTRIBUTION WIDTH 13.3 % (11.5-14.5); WHITE BLOOD COUNT 5.1 10^3/ul (4.5-11.0)
[2017-12-30 06:56] LABS: AMYLASE 65 U/L (35-125); BLOOD UREA NITROGEN 10 mg/dL (7-21); CALCIUM 8.7 mg/dL (8.4-10.5); GFR NON-AFRICAN AMERICAN > 60; LIPASE 119 U/L (23-300)
[2017-12-30 08:54] LABS: ALB/GLOB RATIO 1.5 (1.1-1.8); ALBUMIN 3.8 g/dL (3.0-4.8); BILIRUBIN,DIRECT 0.3 mg/dL (0.0-0.4)
[2017-12-30 09:15] LABS: FREE T4 0.91 ng/dL (0.78-2.19); T4 5.6 ug/dL (5.5-11.0)
[2017-12-30] MEDS: Potassium Chloride 20 mEq ER Tab PO SCH ×2 (10:43→11:55)
[2017-12-30 11:15] LABS: TROPONIN I < 0.01 ng/mL
[2017-12-30 11:19] LABS: CK-MB 1.5 ng/mL (0.0-3.6)
[2017-12-30] MEDS: Lactobacillus Acidophilus 500 MU Cap PO SCH (11:56)
--- NOTE | 2017-12-30 13:13 | CON ---
Copied To: Nestor Mock MD Attending MD: Nestor Mock MD DATE: 12/30/2017 CARDIOLOGY CONSULTATION HISTORY: The patient is a 37-year-old male with no previous cardiac history, who presents with a week of an alcoholic binge and is currently under observation for alcohol withdrawal. The patient's past medical history is free of cardiac disease. He states every time he has these alcoholic binges, the patient developed some epigastric discomfort. No previous myocardial infarction. The patient does not have diabetes mellitus, negative for hypertension. SOCIAL HISTORY: The patient is a heavy smoker to 2-3 packs a day as well as his intermittent alcoholic binges. REVIEW OF SYSTEMS: Fourteen-point review of systems is reviewed in detail. Other than this epigastric discomfort after his alcoholic binges, the patient also has documented sleep apnea. PHYSICAL EXAMINATION: VITAL SIGNS: Stable. NECK: Negative JVD. LUNGS: Without rales. HEART: Reveals S1, S2. EXTREMITIES: Without edema. NEUROLOGICAL: The patient is oriented x3. Nonfocal exam. No tremors noted. LABORATORY DATA: Laboratories includes EKG which is within normal limits. Amylase and lipase are negative. Troponin is pending. IMPRESSION: 1. Atypical chest discomfort. 2. Alcoholic binges. 3. Nicotine addiction. 4. History of sleep apnea. PLAN: Given these findings, we will need to rule out pancreatitis. In addition, we will obtain an echocardiogram to rule out a cardiomyopathy secondary to his heavy alcohol use. Nestor Mock MD
--- NOTE | 2017-12-30 13:17 | PN ---
Copied To: Jaden Shay MD Attending MD: Jaden Shay MD DATE: 12/30/2017 SUBJECTIVE: The patient is seen lying in the bed in room 261 bed 1. The patient is comfortable, but complaining of left-sided chest heaviness and pressure feeling. The patient appears to be anxious appearing at present. Telemetry monitoring was shown. Heart rate is 87 to 84. The patient denies any shortness of breath. OBJECTIVE: VITAL SIGNS: T-max is 98.7. Telemetry heart rate yesterday was slow in 100s, now down to 84, 87, 97, 85; blood pressure 126/84, 130/88, 134/87, 145/96, 148/93; respirations 20; O2 sat is ranging between 94 to 96%. HEENT: Head: Examination normocephalic, atraumatic. HEENT examination shows pink conjunctivae. Anicteric sclerae. Dry oral mucosa. NECK: No neck rigidity. CHEST: Examination is symmetrical. LUNGS: Examination shows no rales, crackles or wheezing. CARDIOVASCULAR: S1, S2. Regular rhythm. ABDOMEN: Soft. Positive bowel sounds. No hepatosplenomegaly. No guarding/ No rigidity. No rebound tenderness. GENITALIA: Male. RECTAL: Deferred. EXTREMITIES: Shows no pitting edema,, no calf tenderness, no Samuel's sign. NEUROLOGICAL: The patient is alert, awake, oriented x3. Cranial nerves II-XII intact. No asterixis noted. MUSCULOSKELETAL: Examination shows a body mass index of 31. VASCULAR: Palpable pulses. PSYCHIATRIC: Positive for anxiety and symptom withdrawal. The patient also complains of some diarrhea. DIAGNOSTICS: December 30, WBC 5.1, down from 12.4;, hemoglobin and hematocrit 13.5 and 38.4, platelet 130,000 manual. Sodium 138, potassium 3.1, chloride 99, CO2 30, anion gap 12, BUN 10, creatinine 0.8, GFR greater than 60, glucose 84, lactic acid is 0.9 today. Yesterday's VBG lactic acid was 3.4. LFTs shows AST of 62, ammonia of 13. Amylase, lipase are normal. Thyroid profile is normal. Triglycerides 217, cholesterol 158, LDL 70. Urine drug screen is negative. Alcohol level on admission was 283. Today's alcohol level is less than 10. RPR is negative. Chest x-ray report is reviewed. EKG from 12/29/2017 and 12/30/2017 were reviewed, which shows sinus tachycardia on December 29 EKG. Today's EKG, on 12/30/2017, shows sinus rhythm. No S-T elevation or depression noted. IMPRESSION AND PLAN: 1. Chest pain, left-sided chest pain and heaviness, etiology undetermined. 2. Alcohol intoxication on admission with alcohol level of 283. 3. Alcohol use disorder. 4. History of alcohol dependence. 5. Alcohol withdrawal syndrome versus delirium tremens. 6. Alcohol binging. 7. Transient leukocytosis. 8. Questionable depression versus major depressive disorder. 9. Thrombocytopenia. 10. Lactic acidosis. 11. Questionable hypertriglyceridemia. 12. Transaminitis versus alcoholic hepatitis. 13. Hypokalemia. 14. Proteinuria, trace ketonuria, microscopic hematuria and bacteriuria. 15. Sinus tachycardia. 16. History of depression and anxiety. 17. History of sleep apnea. PLAN: At this time, the patient is requested cardiac enzymes. The patient has been ordered hepatitis panel, HIV; the patient has been ordered troponin and CPK. Repeat CMP, lactic acid, LFT, magnesium, phosphorus ordered. Repeat CBC, manual platelet count ordered. C diff toxin ordered for diarrhea. CURRENT CONSULTATIONS: Cardiology and Psychiatry. CURRENT MEDICATIONS: Ambien 5 mg at bedtime p.r.n., Ativan 2 mg IV every 3 hours p.r.n. Bacid 1 capsule twice a day. The patient was on clonidine 0.1 mg every 4 hours p.r.n. and clonidine 0.1 mg p.o. every 8 hours six doses, folic acid 1 mg daily, Librium 50 mg every 6 hours, Protonix 40 mg once or twice a day for GI prophylaxis, multivitamin, Valium 5 mg p.o. every 8 hours p.r.n. thiamine 100 mg p.o. daily, Zofran 4 p.r.n. PLAN: At this time, the patient will be continued on the above therapeutic intervention. The patient will be ordered out of bed, incentive spirometry.. Echo will be ordered.. JONAH stockings, SCDs will be ordered. At present, the patient has been counseled about cessation of alcohol. All risks, consequences explained to the patient and family. All questions concerned answered, which he acknowledged to understand. Dictated and electronically signed, not read. Jaden Shay MD
[2017-12-30 17:35] LABS: HEPATITIS B SURFACE AG Negative (NEGATIVE)
[2017-12-30 17:40] LABS: HEPATITIS A IGM NEGATIVE (NEGATIVE); HEPATITIS B CORE AB NEGATIVE (NEGATIVE)
[2017-12-30 17:52] LABS: HEPATITIS C ANTIBODY NEGATIVE (NEGATIVE)
--- NOTE | 2017-12-30 19:59 | CARD ---
APPROVED REPORT Date of service: 12/30/2017 EXAM: Two-dimensional and M-mode echocardiogram with Doppler and color Doppler. INDICATION Hypertension/HCVD Chest Pain 2D DIMENSIONS Left Atrium (2D)3.8 (1.6-4.0cm)IVSd1.2 (0.7-1.1cm) LVDd4.8 (3.9-5.9cm)PWd1.4 (0.7-1.1cm) LVDs3.0 (2.5-4.0cm)FS (%) 38.1 % LVEF (%)68.2 (>50%) M-Mode DIMENSIONS Aortic Root3.70 (2.2-3.7cm)Aortic Cusp Exc.2.20 (1.5-2.0cm) Aortic Valve AoV Peak Swwzsnwi749.0cm/Tamika Peak GR.5mmHg Mitral Valve MV E Jfukqeym22.4cm/sMV A Bebvfmhf65.7cm/sE/A ratio0.7 TDI E/Lateral E'0.0E/Medial E'0.0 Tricuspid Valve TR Peak Uqsyjkbi471eh/sRAP RFENYYQP67htHeAL Peak Gr.24mmHg [id number] LEFT VENTRICLE The left ventricle is normal size. There is normal left ventricular wall thickness. The left ventricular function is normal. The left ventricular ejection fraction is within the normal range. There is normal LV segmental wall motion. Transmitral Doppler flow pattern is Grade I-abnormal relaxation pattern. RIGHT VENTRICLE The right ventricle is normal size. There is normal right ventricular wall thickness. The right ventricular systolic function is normal. ATRIA The left atrium size is normal. The right atrium size is normal. AORTIC VALVE The aortic valve is normal in structure. No aortic regurgitation is present. There is no aortic valvular stenosis. MITRAL VALVE The mitral valve is normal in structure. There is no mitral valve regurgitation noted. There is no mitral valve stenosis. TRICUSPID VALVE The tricuspid valve is normal in structure. There is mild pulmonary hypertension. PULMONIC VALVE The pulmonary valve is normal in structure. There is no pulmonic valvular regurgitation. GREAT VESSELS The aortic root is borderline enlarged. The IVC is normal in size and collapses >50% with inspiration. PERICARDIAL EFFUSION There is no pericardial effusion. <Conclusion> The left ventricle is normal size. There is normal left ventricular wall thickness. The left ventricular function is normal. The left ventricular ejection fraction is within the normal range. There is normal LV segmental wall motion. Transmitral Doppler flow pattern is Grade I-abnormal relaxation pattern. There is mild pulmonary hypertension.
--- NOTE | 2017-12-30 23:25 | CARD ---
APPROVED REPORT Date of service: 12/30/2017 EKG Measurement Heart [id number] <Conclusion> Normal sinus rhythm Normal ECG
--- NOTE | 2017-12-31 01:20 | PN ---
Copied To: Lay Mehta MD Attending MD: Lay Mehta MD DATE: 12/30/2017 FOLLOWUP NOTE SUBJECTIVE: In short, the patient is 37-year-old male with reported history of binge drinking alcohol. The patient was admitted on the medical side for evaluation of shortness of breath, chest pain and possible withdrawal symptoms. Psych consult was called because the patient has history of depression was awaiting for appointment with Dr. Ruslan Quick here in [place]. The patient was seen yesterday. Today the patient was followed up. The patient reported that he had rough night and he did not sleep, Ambien will be scheduled for the patient. Risks, benefits and alternatives discussed with the patient. He reported that he feels little bit better in regards of the withdrawal symptoms, but the patient describes himself as "my body is exhausted, I am in pain all over my body, I cannot abuse my body like that". The patient reported that he feels depressed, but he has no thoughts of killing himself or others. The patient was afraid that he will due to alcohol poisoning and he came to the hospital looking for help. Vital signs are stable. Temperature 98.1, pulse 78, blood pressure 128/83, respiration 18. Oxygen saturations is 96. MEDICATIONS: Reviewed. The patient is on Librium 50 mg every 6 hour scheduled. The patient is on Valium. The patient is on Ativan 2 mg IV push every 3 hours as needed, multivitamins, Protonix, thiamine. Ambien will be given to the patient as scheduled. LABORATORY DATA: Reviewed. Hemoglobin and hematocrit 13.5 and 38.4 respectively. Potassium level was low at 3.1, lactic acid 0.9, creatine kinase is 351. MENTAL STATUS EXAMINATION: The patient presented to be alert and oriented, pleasant, and cooperative. The patient described his mood as depressed. Affect was constricted. At times reactive. Thought process seems to be coherent and goal directed. Thought content, the patient denied visual, auditory, tactile hallucinations, but the patient reported that he had vivid dreams. The patient reported that he was not sure what is real and what is not real. Insight and judgment seems to be improving. Impulses are well controlled. IMPRESSION: Rule out substance-induced mood disorder, alcohol use disorder, rule out major depressive disorder. PLAN: We will continue current management, multivitamins, thiamine and folic acid. We will observe the patient. If the patient meets criteria, we will start antidepressant. Ambien will be given to the patient at the nighttime. Continue multivitamins, thiamine and folic acid, discussed naltrexone as well as Revia with the patient. The patient seems to be open to that option. Thank you very much for letting me participate in care of your patient. Should you have any questions give me a call back. Lay Mehta MD JUNE
[2017-12-31 06:25] VITALS: O2SAT 99
[2017-12-31 06:30] LABS: EOS # 0.2 (0.0-0.7); EOS % 3.5 % (1.5-5.0); GRAN # 2.83 (1.4-6.5); GRAN % 58.6 % (50.0-68.0); HEMOGLOBIN 13.4 g/dL (14.0-18.0); LYMPH # 1.4 (1.2-3.4); LYMPH % 28.8 % (22.0-35.0); MEAN CELL VOLUME 86.8 fl (80.0-105.0); MEAN CORPUSCULAR HEMOGLOBIN 30.5 pg (25.0-35.0); MEAN CORPUSCULAR HGB CONC 35.2 g/dl (31.0-37.0); MEAN PLATELET VOLUME 10.4 fl (7.0-11.0); MONO # 0.4 (0.1-0.6); MONO % 9.1 % (1.0-6.0); RBC 4.39 10^6/uL (3.5-6.1); RED CELL DISTRIBUTION WIDTH 13.5 % (11.5-14.5); WHITE BLOOD COUNT 4.8 10^3/ul (4.5-11.0)
[2017-12-31 07:06] LABS: ALB/GLOB RATIO 1.4 (1.1-1.8); ALBUMIN 3.8 g/dL (3.0-4.8); ALT/SGPT 56 U/L (7-56); AST/SGOT 51 U/L (17-59); BILIRUBIN,DIRECT 0.1 mg/dL (0.0-0.4); BLOOD UREA NITROGEN 8 mg/dL (7-21); GFR NON-AFRICAN AMERICAN > 60
[2017-12-31] MEDS: Multivitamin With Minerals Tab PO SCH (09:51)
[2017-12-31] MEDS: Pantoprazole 40 mg EC Tab PO SCH (09:51)
[2017-12-31] MEDS: Lactobacillus Acidophilus 500 MU Cap PO SCH (09:52)
--- NOTE | 2017-12-31 10:17 | PN ---
Copied To: Nestor Mock MD Attending MD: Nestor Mock MD DATE: 12/31/2017 CARDIOLOGY FOLLOWUP SUBJECTIVE: The patient is awake, alert without distress. OBJECTIVE: VITAL SIGNS: Blood pressure 119/75, the heart rate is in the 70s, normal sinus rhythm. NECK: Negative JVD. LUNGS: Without rales. HEART: Reveal S1, S2. EXTREMITIES: Without edema. There are no tremors noted. DATA: Hemoglobin is 13.4. Chemistries: Potassium is 3.8. The magnesium is 1.9. Echocardiogram report shows good LV function. IMPRESSION: 1. Alcoholism. 2. No evidence for withdrawal. 3. Heart rhythm is stable. 4. Good left ventricular function. Given these findings, the patient is being followed by Psychiatry. We will discontinue Telemetry today. No further cardiac workup is necessary. Nestor Mock MD
[2017-12-31 12:27] VITALS: BP 121/60; PULSE 62; RESP 19; TEMP 97.7
--- NOTE | 2017-12-31 13:56 | CP.PCM.PCO ---
Subjective - Physician Review Subjective (Free Text): AMA Note Patient requested to leave against medical advice for personal reasons. Chart was reviewed prior to visit with patient. Patient is AOx3. Patient has no suicidal or homicidal ideations. Patient does not exhibit any signs or symptoms of alcohol withdrawal. I explained the benefits of him staying including, but not limited to evaluating and stabilizing his current condition, as well as providing appropriate treatment. I explained the risks of him leaving against medical advice including, but not limited to further morbidity and possible mortality. Patient expressed understanding, but still elected to leave against medical advice.
--- NOTE | 2017-12-31 14:57 | PN ---
Copied To: Jaden Shay MD Attending MD: Jaden Shay MD DATE: 12/31/2017 SUBJECTIVE: The patient is seen in room 261, bed 1 with the patient's nurse, at bedside. Telemetry shows sinus rhythm. The patient appears to be anxious, restless and mildly agitated and wants to leave the hospital. Last night, the patient was found walking in the hallway and appears to be anxious and restless and wanting to leave the hospital. I had a lengthy discussion with the patient. I advised the patient that he is not ready for discharge. The patient still seems to be withdrawing from alcohol and needs to be treated in hospital. The patient is expressing interest in signing out against medical advise, which I have advised against doing that. PHYSICAL EXAMINATION: VITAL SIGNS: T-max 97.5, pulse 71, 89, 69, blood pressure 123/89, respiration 20, O2 sat 99%. HEENT: Head examination, normocephalic, atraumatic. HEENT examination shows pink conjunctivae. Anicteric sclerae. No oropharyngeal lesion. No neck rigidity. CHEST: Kyphosis. LUNGS: Shows no rales, crackles or wheezing. CARDIOVASCULAR: S1, S2, regular rhythm. No audible murmur, gallop or rub. ABDOMEN: Soft. Positive bowel sounds. No hepatosplenomegaly noted. GENITALIA: Male. RECTAL: Deferred. EXTREMITIES: Shows no pitting edema, no calf numbness, no Homans' sign. NEUROLOGIC: The patient is alert, awake, oriented x3. Cranial nerves II-XII grossly intact. Motor strength is 5/5. Gait examination is independent as per the nurse's notes. NEUROPSYCHIATRIC: Shows the patient is anxious, restless, appears to be withdrawing with shakiness and tremulousness of the upper extremity. DIAGNOSTICS: On 12/31/2017, WBC 4.8, hemoglobin and hematocrit 13.4 and 38.1, platelet 107,000 and 128,000. Sodium 142, potassium 3.8, chloride 106, CO2 of 26, anion gap 15, BUN 8, creatinine 0.7, GFR greater than 60, glucose 87, lactic acid is down to 0.6, calcium 9, phosphorus 4.1, magnesium 1.9. LFTs are normal. RPR is negative. Hepatitis A, B, C serologies negative. Urine drug screen negative. Alcohol level was 283, down to less than 10 yesterday. The patient had an echocardiogram done, the results of which were reviewed. IMPRESSION AND PLAN: 1. Alcohol withdrawal with delirium tremens. 2. Alcohol use disorder. 3. Questionable substance-induced mood disorder. 4. Questionable major depressive disorder. 5. Tachycardia. 6. Questionable major depression. 7. Leukocytosis, thrombocytopenia. 8. Mild normocytic anemia. 9. Transient lactic acidosis. 10. Hypokalemia. 11. Transaminitis versus alcoholic hepatitis. 12. Hypertriglyceridemia. 13. Proteinuria, trace ketonuria, microscopic hematuria, bacteriuria. 14. Status post alcohol intoxication. 15. Atypical chest pain. 16. History of sleep apnea. 17. Grade 1 abnormal relaxation pattern with left ventricular ejection fraction of 68%. 18. Mild pulmonary hypertension with right ventricular systolic pressure of 34 mmHg alcohol withdrawal syndrome. 19. History of alcohol dependence. 20. Insomnia. 21. Anxiety disorder. PLAN: At this time, the patient has been ordered repeat chemistry, LFT, magnesium, phosphorus. HIV results are pending. The patient was ordered C. diff toxin, but the patient's diarrhea has resolved. Current consultation, Cardiology, Psychiatry. Current medications, Ambien 5 mg at bedtime, Ativan 2 mg IV every 3 hours. The patient is on Bacid 1 capsule twice a day, clonidine 0.1 mg every 4 hours p.r.n. and clonidine 0.1 mg every 8 hours x total 6 doses, folic acid 1 mg daily, Librium 50 mg every 6 hours, multivitamin was given, Protonix 40 daily, Valium 5 mg p.o. every 8 hours p.r.n. thiamine 100 mg p.o. daily, Zofran 4 mg IV every 4 hours. The patient is on regular diet. The patient's telemetry was discontinued by Dr. Mock. The patient is on seizure precaution, JONAH stockings, SCDs. As mentioned above, I have advised the patient to continue in the hospital for further treatment and management, but the patient wants to sign out against medical advise, against which I have advised strictly against signing out medical advise to the patient, which he acknowledged understanding. Dictated and electronically signed, not read. Jaden MD [facility] # [id number]
--- NOTE | 2017-12-31 18:29 | PN ---
Copied To: Lay Mehta MD Attending MD: Lay Mehta MD DATE: 12/31/2017 SUBJECTIVE: The patient was admitted on the medical site for alcohol withdrawal syndrome. Psych consult was called for evaluation of depressive symptoms and management of withdrawal symptoms. This marketing underwriter followed up on this patient for past 2 days. The patient was seen today. The patient reported that he is overly medicated, requested medication to be adjusted. This marketing underwriter suggested to discontinue scheduled dose of Ativan, Valium also was discontinued. Neurontin was started. Also, dose of Librium was decreased by 50%. The patient reported that he feels overly medicated but denied any withdrawal symptoms. Denied feeling depressed. Denied thoughts of harming himself or others. Vital signs reviewed. Temperature 97.5, pulse is 89, blood pressure 123/89, respirations 20, and oxygen saturation is 99. Medications reviewed. As this marketing underwriter described above, adjustment took place. Labs reviewed. Most recent was from today. Hemoglobin is 13.4, hematocrit 38.4. Chemistry reviewed. Toxicology reviewed. Alcohol level was 283 at the time of admission. MENTAL STATUS EXAMINATION: The patient presented to be alert and oriented. The patient has intense eye contact. Speech was normal rate, tone, quality, and quantity. Mood described as "I feel overly medicated." Affect was constricted. Thought process circumstantial, tangential. Thought content, the patient appears mildly guarded and mildly paranoid, but there is no acute psychosis. No agitation. Insight and judgment seem to be improving. Impulses are well controlled. IMPRESSION: The patient has alcohol use disorder, rule out mood disorder due to chronic alcohol abuse. Alcohol withdrawal symptoms are much better. PLAN: All medications were adjusted, but as this marketing underwriter was reviewing notes, the patient was agitated and wanted to leave as per medical team. The patient has capacity to do so. The patient never verbalized thoughts of killing himself or killing others. The patient was educated about resources in the community. The patient has followup appointment with Dr. Ruslan Quick. This marketing underwriter will sign off. Should you have any questions, give me a call back. Thank you very much. Lay Mehta MD [facility] # [id number]
== END 2017-12-31 14:10 | disposition left against medical advice (07) | DRG 894 ==
LOC: ED 04:03 → ERH 06:55 → 2RNO 12:42
PROVIDERS: ADMIT Internal Medicine; ATTEND Internal Medicine
DX: F10.231 Alcohol dependence with withdrawal delirium (principal); E87.2 Acidosis; D64.9 Anemia, unspecified; D69.6 Thrombocytopenia, unspecified; D72.829 Elevated white blood cell count, unspecified; E78.1 Pure hyperglyceridemia; E87.6 Hypokalemia; F17.200 Nicotine dependence, unspecified, uncomplicated; F41.9 Anxiety disorder, unspecified; G47.00 Insomnia, unspecified; G47.30 Sleep apnea, unspecified; I27.20 Pulmonary hypertension, unspecified; Y90.8 Blood alcohol level of 240 mg/100 ml or more; R07.89 Other chest pain; R82.71 Bacteriuria; R31.29 Other microscopic hematuria; R80.9 Proteinuria, unspecified; R82.4 Acetonuria; F10.24 Alcohol dependence with alcohol-induced mood disorder

== ENCOUNTER 2018-02-19 19:39 | Emergency (ER) | payer BC ==
[2018-02-19 19:40] VITALS: BMI 32.5
== END 2018-02-19 19:52 | disposition left against medical advice (07) ==
LOC: ED 19:39
DX: Z02.89 Encounter for other administrative examinations (principal); F10.10 Alcohol abuse, uncomplicated

== ENCOUNTER 2018-02-19 20:05 | Emergency (ER) | payer BC ==
[2018-02-19 20:33] VITALS: BP 145/95; PULSE 114; RESP 19; TEMP 98.5; O2SAT 95; BMI 19.0
== END 2018-02-19 20:30 | disposition left against medical advice (07) ==
LOC: ED 20:05
DX: Z02.89 Encounter for other administrative examinations (principal); F10.10 Alcohol abuse, uncomplicated

== ENCOUNTER 2018-02-20 01:29 | Emergency (ER) | payer BC ==
[2018-02-20 01:29] VITALS: BMI 32.5
[2018-02-20 01:49] VITALS: RESP 18; TEMP 98.1
--- NOTE | 2018-02-20 01:58 | ED PDOC ---
Arrival/HPI - General Chief Complaint: Alcohol Ingestion Time Seen by Provider: 02/20/18 01:30 Historian: Patient - History of Present Illness Narrative History of Present Illness (Text): 02/20/18 01:55 37 year old male, whose past medical history includes alcohol abuse, presents to the emergency department for alcohol intoxication. Patient admits to drinking tonight. Patient was registered in the er x 2 tonight, but seen eloping out of er patientient is awake, alert, and ambulatory with a steady gait upon arriavl. seen in er numerous times for similar. Patient denies any fever, chills, chest pain, shortness of breath, nausea, vomiting, diarrhea, urinary symptoms, back pain, neck pain, headache, dizziness, or any other complaints. 02/20/18 02:43 Symptom Onset: Gradual Symptom Course: Unchanged Activities at Onset: Light Context: Home Past Medical History - Provider Review Nursing Documentation Reviewed: Yes - Infectious Disease Hx of Infectious Diseases: None - Tetanus Immunization Tetanus Immunization: Unknown - Past Medical History Past Medical History: No Previous - Cardiac Hx Cardiac Disorders: No Hx Hypertension: No - Pulmonary Hx Tuberculosis: No - Neurological HX Cerebrovascular Accident: No Hx Seizures: Yes - HEENT Hx HEENT Disorder: No - Renal Hx Renal Disorder: No - Endocrine/Metabolic Hx Endocrine Disorders: No - Hematological/Oncological Hx Cancer: No - Integumentary Hx Dermatological Disorder: No Other/Comment: cyst removed on back, pt has scab on back 1cm x 1cm - Musculoskeletal/Rheumatological Hx Falls: Yes - Gastrointestinal Hx Gastrointestinal Disorders: No - Genitourinary/Gynecological Hx Sexually Transmitted Diseases: No - Psychiatric Hx Psychophysiologic Disorder: Yes Hx Anxiety: Yes Hx Bipolar Disorder: No Hx Depression: Yes Hx Emotional Abuse: No Hx Hallucinations: No Hx Panic Disorder: No Hx Post Traumatic Stress Disorder: No Hx Physical Abuse: No Hx Schizophrenia: No Hx Sexual Abuse: No Hx Substance Use: No - Past Surgical History Past Surgical History: No Previous - Anesthesia Hx Anesthesia: No - Suicidal Assessment Feels Threatened In Home Enviroment: No Family/Social History - Physician Review Nursing Documentation Reviewed: Yes Family/Social History: No Known Family HX Smoking Status: Heavy Smoker > 10 Cigarettes Daily Hx Alcohol Use: Yes Hx Substance Use: No Hx Substance Use Treatment: No Allergies/Home Meds Allergies/Adverse Reactions: Allergies No Known Allergies Allergy (Verified 12/29/17 04:11) Home Medications: Home Meds Medication Instructions Recorded Confirmed RX: No Known Home Med 02/19/18 02/20/18 Review of Systems - Physician Review All systems were reviewed & negative as marked: Yes - Review of Systems Constitutional: absent: Fevers, Other (Chills) Respiratory: absent: SOB Cardiovascular: absent: Chest Pain Gastrointestinal: absent: Diarrhea, Nausea, Vomiting Genitourinary Male: absent: Dysuria, Frequency, Hematuria Musculoskeletal: absent: Back Pain, Neck Pain Neurological: absent: Headache, Dizziness Physical Exam Vital Signs Reviewed: Yes Vital Signs Temp Pulse Resp BP Pulse Ox 02/20/18 01:46 98.1 F 111 H 18 142/100 H 100 Temperature: Afebrile Blood Pressure: Hypertensive Pulse: Tachycardic Respiratory Rate: Normal Appearance: Positive for: Well-Appearing, Non-Toxic, Comfortable Pain Distress: None Mental Status: Positive for: Alert and Oriented X 3 - Systems Exam Head: Present: Atraumatic, Normocephalic Pupils: Present: PERRL Extroacular Muscles: Present: EOMI Conjunctiva: Present: Normal Mouth: Present: Moist Mucous Membranes Neck: Present: Normal Range of Motion Respiratory/Chest: Present: Clear to Auscultation, Good Air Exchange. No: Respiratory Distress, Accessory Muscle Use Cardiovascular: Present: Regular Rate and Rhythm, Normal S1, S2. No: Murmurs Abdomen: No: Tenderness, Distention, Peritoneal Signs Back: Present: Normal Inspection Upper Extremity: Present: Normal Inspection. No: Cyanosis, Edema Lower Extremity: Present: Normal Inspection. No: Edema Neurological: Present: GCS=15, CN II-XII Intact, Speech Normal, Gait Normal (ambulatory with steady gait) Skin: Present: Warm, Dry, Normal Color. No: Rashes Psychiatric: Present: Alert, Oriented x 3, Normal Insight, Normal Concentration Medical Decision Making ED Course and Treatment: 02/20/18 01:55 Impression: 37 year old male presents for alcohol intoxication. Patient is awake, alert, and ambulatory with a steady gait. clinically sober for discharge. no e/o o f w/d conversing normally, in nad. Plan: -- Blood Sugar -- Reassess and disposition Prior Visits: Notes and results from previous visits were reviewed. Progress Notes: 02/20/18 02:05 Patient is awake, alert, and ambulatory with a steady gait. Patient was able to answer every question without any difficulty. Patient was seen in the Emergency room earlier, but eloped before being evaluated. Patient denies any complaints at this time and is in no acute distress. Patient is stable for discharge. 02/20/18 02:44 - Scribe Statement The provider has reviewed the documentation as recorded by the Aimee Berumen Provider Scribe Attestation: All medical record entries made by the Scribe were at my direction and personally dictated by me. I have reviewed the chart and agree that the record accurately reflects my personal performance of the history, physical exam, medical decision making, and the department course for this patient. I have also personally directed, reviewed, and agree with the discharge instructions and disposition. Disposition/Present on Arrival - Present on Arrival Any Indicators Present on Arrival: No History of DVT/PE: No History of Uncontrolled Diabetes: No Urinary Catheter: No History of Decub. Ulcer: No History Surgical Site Infection Following: None - Disposition Have Diagnosis and Disposition been Completed?: Yes Diagnosis: ETOH abuse Disposition: HOME/ ROUTINE Disposition Time: 01:45 Patient Problems: Current Active Problems Problem Status Onset Alcohol abuse Acute Condition: STABLE Discharge Instructions (ExitCare): Alcohol Abuse and Alcoholism (DC) Additional Instructions: return to er with worsening symptoms or concerns. Referrals: Alcoholics Anonymous [Outside] - Follow up with primary Forms: [employer] (Martiniquais)
[2018-02-20 02:52] VITALS: BP 137/89; PULSE 93; O2SAT 99
== END 2018-02-20 02:13 | disposition home or self-care (01) ==
LOC: ED 01:29
DX: F10.10 Alcohol abuse, uncomplicated (principal)

== ENCOUNTER 2018-06-07 15:59 | Emergency (ER) | payer BC ==
[2018-06-07 15:59] VITALS: BMI 32.5
[2018-06-07 17:30] VITALS: TEMP 98.2; O2SAT 99
--- NOTE | 2018-06-07 18:06 | ED PDOC ---
Arrival/HPI - General Chief Complaint: Alcohol Ingestion Time Seen by Provider: 06/07/18 16:00 Historian: Patient - History of Present Illness Narrative History of Present Illness (Text): 06/07/18 18:03 37yo male who present to ED requesting detox for alcohol abuse. States he has been drinking and admits to drinking today. States he came to ED for detox. Denies any somatic complaint. Denies SI/HI. Past Medical History - Provider Review Nursing Documentation Reviewed: Yes - Infectious Disease Hx of Infectious Diseases: None - Tetanus Immunization Tetanus Immunization: Unknown - Past Medical History Past Medical History: No Previous - Cardiac Hx Cardiac Disorders: No Hx Hypertension: No - Pulmonary Hx Tuberculosis: No - Neurological HX Cerebrovascular Accident: No Hx Seizures: Yes - HEENT Hx HEENT Disorder: No - Renal Hx Renal Disorder: No - Endocrine/Metabolic Hx Endocrine Disorders: No - Hematological/Oncological Hx Cancer: No - Integumentary Hx Dermatological Disorder: No Other/Comment: cyst removed on back, pt has scab on back 1cm x 1cm - Musculoskeletal/Rheumatological Hx Falls: Yes - Gastrointestinal Hx Gastrointestinal Disorders: No - Genitourinary/Gynecological Hx Sexually Transmitted Diseases: No - Psychiatric Hx Psychophysiologic Disorder: Yes Hx Anxiety: Yes Hx Bipolar Disorder: No Hx Depression: Yes Hx Emotional Abuse: No Hx Hallucinations: No Hx Panic Disorder: No Hx Post Traumatic Stress Disorder: No Hx Physical Abuse: No Hx Schizophrenia: No Hx Sexual Abuse: No Hx Substance Use: No - Past Surgical History Past Surgical History: No Previous - Anesthesia Hx Anesthesia: No Hx Anesthesia Reactions: No Hx Malignant Hyperthermia: No - Suicidal Assessment Feels Threatened In Home Enviroment: No Family/Social History - Physician Review Nursing Documentation Reviewed: Yes Family/Social History: Unknown Family HX Smoking Status: Heavy Smoker > 10 Cigarettes Daily Hx Alcohol Use: Yes Hx Substance Use: No Hx Substance Use Treatment: No Allergies/Home Meds Allergies/Adverse Reactions: Allergies No Known Allergies Allergy (Verified 12/29/17 04:11) Home Medications: Home Meds Medication Instructions Recorded Confirmed RX: No Known Home Med 02/19/18 02/20/18 Review of Systems - Physician Review All systems were reviewed & negative as marked: Yes - Review of Systems Systems not reviewed;Unavailable: Intoxicated Constitutional: Normal Eyes: Normal ENT: Normal Respiratory: Normal Cardiovascular: Normal Gastrointestinal: Normal Genitourinary Male: Normal Musculoskeletal: Normal Skin: Normal Neurological: Normal Endocrine: Normal Hemo/Lymphatic: Normal Psychiatric: Normal Physical Exam Vital Signs Reviewed: Yes Vital Signs Temp Pulse Resp BP Pulse Ox 06/07/18 16:00 98.2 F 98 H 20 143/88 99 Temperature: Afebrile Blood Pressure: Normal Pulse: Regular Respiratory Rate: Normal Appearance: Positive for: Well-Appearing, Non-Toxic, Comfortable, Other (Alcohol breathe) Pain Distress: None Mental Status: Positive for: Alert and Oriented X 3 - Systems Exam Head: Present: Atraumatic, Normocephalic Pupils: Present: PERRL Extroacular Muscles: Present: EOMI Conjunctiva: Present: Normal Mouth: Present: Moist Mucous Membranes Neck: Present: Normal Range of Motion Respiratory/Chest: Present: Clear to Auscultation, Good Air Exchange. No: Respiratory Distress, Accessory Muscle Use Cardiovascular: Present: Regular Rate and Rhythm, Normal S1, S2. No: Murmurs Abdomen: No: Tenderness, Distention, Peritoneal Signs Back: Present: Normal Inspection Upper Extremity: Present: Normal Inspection. No: Cyanosis, Edema Lower Extremity: Present: Normal Inspection. No: Edema Neurological: Present: GCS=15, CN II-XII Intact, Speech Normal Skin: Present: Warm, Dry, Normal Color. No: Rashes Psychiatric: Present: Alert, Oriented x 3, Normal Insight, Normal Concentration Medical Decision Making ED Course and Treatment: 06/08/18 00:30 PT presented to ED for stated history. He was AAO x3 and have stable gait without help Labs was ordered Pt however declined work up. States he wants to leave. He was DC under the care of his mother. He denies SI/HI Disposition/Present on Arrival - Present on Arrival Any Indicators Present on Arrival: No History of DVT/PE: No History of Uncontrolled Diabetes: No Urinary Catheter: No History of Decub. Ulcer: No History Surgical Site Infection Following: None - Disposition Have Diagnosis and Disposition been Completed?: Yes Diagnosis: Alcohol abuse Disposition: HOME/ ROUTINE Disposition Time: 18:05 Patient Plan: Discharge Condition: STABLE Discharge Instructions (ExitCare): Alcohol Use - When Is Drinking a Problem?, Alcohol Abuse and Alcoholism (DC) Additional Instructions: Join AA Return to ED for any new symptoms Referrals: Gurwinder Abdalla MD [Primary Care Provider] - Follow up with primary Alcoholics Anonymous [Outside] - Follow up with primary Forms: [employer] (Cypriot)
[2018-06-07 18:13] VITALS: BP 141/71; PULSE 94; RESP 18
== END 2018-06-07 18:14 | disposition home or self-care (01) ==
LOC: ED 15:59
DX: F10.10 Alcohol abuse, uncomplicated (principal); F17.210 Nicotine dependence, cigarettes, uncomplicated

== ENCOUNTER 2018-10-10 11:50 | Emergency (ER) | payer BC ==
[2018-10-10 12:18] VITALS: BMI 32.1
[2018-10-10 12:24] VITALS: BP 135/87; RESP 18
--- NOTE | 2018-10-10 12:48 | ED PDOC ---
Arrival/HPI - General Chief Complaint: Alcohol Ingestion Time Seen by Provider: 10/10/18 12:05 Historian: Patient - History of Present Illness Narrative History of Present Illness (Text): 10/10/18 12:45 37 year old M with pmh of ETOH abuse present requesting detox for alcohol abuse. States he has been drinking and admits to drinking today. States he came to ED for detox. Denies any somatic complaint Dr. Abdalla Time/Duration: Prior to Arrival Symptom Onset: Sudden Symptom Course: Unchanged Activities at Onset: Light Past Medical History - Provider Review Nursing Documentation Reviewed: Yes - Infectious Disease Hx of Infectious Diseases: None - Tetanus Immunization Tetanus Immunization: Unknown - Past Medical History Past Medical History: No Previous - Cardiac Hx Cardiac Disorders: No Hx Hypertension: No - Pulmonary Hx Tuberculosis: No - Neurological HX Cerebrovascular Accident: No Hx Seizures: Yes - HEENT Hx HEENT Disorder: No - Renal Hx Renal Disorder: No - Endocrine/Metabolic Hx Endocrine Disorders: No - Hematological/Oncological Hx Cancer: No - Integumentary Hx Dermatological Disorder: No Other/Comment: cyst removed on back, pt has scab on back 1cm x 1cm - Musculoskeletal/Rheumatological Hx Falls: Yes - Gastrointestinal Hx Gastrointestinal Disorders: No - Genitourinary/Gynecological Hx Sexually Transmitted Diseases: No - Psychiatric Hx Psychophysiologic Disorder: Yes Hx Anxiety: Yes Hx Bipolar Disorder: No Hx Depression: Yes Hx Emotional Abuse: No Hx Hallucinations: No Hx Panic Disorder: No Hx Post Traumatic Stress Disorder: No Hx Physical Abuse: No Hx Schizophrenia: No Hx Sexual Abuse: No Hx Substance Use: No - Past Surgical History Past Surgical History: No Previous - Anesthesia Hx Anesthesia: No Hx Anesthesia Reactions: No Hx Malignant Hyperthermia: No - Suicidal Assessment Feels Threatened In Home Enviroment: No Family/Social History - Physician Review Nursing Documentation Reviewed: Yes Family/Social History: Unknown Family HX Smoking Status: Heavy Smoker > 10 Cigarettes Daily Hx Alcohol Use: Yes Frequency of alcohol use: Daily Hx Substance Use: No Hx Substance Use Treatment: No Allergies/Home Meds Allergies/Adverse Reactions: Allergies No Known Allergies Allergy (Verified 10/10/18 12:18) Home Medications: Home Meds Medication Instructions Recorded Confirmed No Known Home Med 02/19/18 02/20/18 Review of Systems - Physician Review All systems were reviewed & negative as marked: Yes - Review of Systems Constitutional: Normal Eyes: Normal ENT: Normal Respiratory: Normal Cardiovascular: Normal Gastrointestinal: Normal Genitourinary Male: Normal Musculoskeletal: Normal Skin: Normal Neurological: Normal Endocrine: Normal Hemo/Lymphatic: Normal Psychiatric: Normal Physical Exam Vital Signs Reviewed: Yes Vital Signs Temp Pulse Resp BP Pulse Ox 10/10/18 11:51 98 F 111 H 18 135/87 95 Temperature: Afebrile Blood Pressure: Normal Pulse: Regular Respiratory Rate: Normal Appearance: Positive for: Well-Appearing, Non-Toxic, Comfortable Pain Distress: None Mental Status: Positive for: Alert and Oriented X 3 - Systems Exam Head: Present: Atraumatic, Normocephalic Pupils: Present: PERRL Extroacular Muscles: Present: EOMI Conjunctiva: Present: Normal Mouth: Present: Moist Mucous Membranes Neck: Present: Normal Range of Motion Respiratory/Chest: Present: Clear to Auscultation, Good Air Exchange. No: Respiratory Distress, Accessory Muscle Use Cardiovascular: Present: Regular Rate and Rhythm, Normal S1, S2. No: Murmurs Abdomen: No: Tenderness, Distention, Peritoneal Signs Back: Present: Normal Inspection Upper Extremity: Present: Normal Inspection. No: Cyanosis, Edema Lower Extremity: Present: Normal Inspection. No: Edema Neurological: Present: GCS=15, CN II-XII Intact, Speech Normal Skin: Present: Warm, Dry, Normal Color. No: Rashes Psychiatric: Present: Alert, Oriented x 3, Normal Insight, Normal Concentration Medical Decision Making ED Course and Treatment: 10/10/18 12:47 Impression: 37 year old M present requesting detox for alcohol abuse Prior Visits: Notes and results from previous visits were reviewed. Progress Notes: 10/10/18 13:27 no e/o of w/d in er. no tremors,speaking fulls entences steady gait. reports drinking today. pt instructed to return if in etoh w/d. given referal to detox [email or web address] 10/10/18 13:27 no tachy hr 96. no tremors NOT in withdrawal at this time. - Scribe Statement The provider has reviewed the documentation as recorded by the Aimee Rivera All medical record entries made by the Scribe were at my direction and personally dictated by me. I have reviewed the chart and agree that the record accurately reflects my personal performance of the history, physical exam, medical decision making, and the department course for this patient. I have also personally directed, reviewed, and agree with the discharge instructions and disposition. Disposition/Present on Arrival - Present on Arrival Any Indicators Present on Arrival: No History of DVT/PE: No History of Uncontrolled Diabetes: No Urinary Catheter: No History of Decub. Ulcer: No History Surgical Site Infection Following: None - Disposition Have Diagnosis and Disposition been Completed?: Yes Diagnosis: Alcohol abuse Disposition: HOME/ ROUTINE Disposition Time: 13:27 Condition: STABLE Discharge Instructions (ExitCare): Alcohol Use - When Is Drinking a Problem?, Alcohol Abuse and Alcoholism (DC) Referrals: Alcoholics Anonymous [Outside] - Follow up with primary Forms: [employer] (Persian)
[2018-10-10 13:25] VITALS: PULSE 96; TEMP 98; O2SAT 98
== END 2018-10-10 13:25 | disposition home or self-care (01) ==
LOC: ED 11:50
DX: F10.10 Alcohol abuse, uncomplicated (principal); F17.210 Nicotine dependence, cigarettes, uncomplicated